=== PATIENT | female | born 1995 | race Caucasian/White ===

== ENCOUNTER 2022-11-10 20:34 | Emergency (ER) | payer MEDICAID, OTHER ==
[2022-11-10] MEDS ORDERED: SODIUM CHLORIDE 0.9% 1,000 ML IV STA (20:56)
[2022-11-10] MEDS ORDERED: ONDANSETRON 4 MG/2 ML VIAL IVP STA (20:56)
[2022-11-10 21:18] LABS: BASOPHILS # (AUTO) 0.1 10^3/uL (0.0-0.1); BASOPHILS % (AUTO) 0.3 %; HGB - HEMOGLOBIN 14.1 g/dL (12.0-16.0); LYMPHOCYTES # (AUTO) 0.8 10^3/uL (1.5-3.5); LYMPHOCYTES % (AUTO) 5.3 %; MEAN CORPUSCULAR HEMOGLOBIN 29.7 pg (27.0-31.0); MEAN CORPUSCULAR HGB CONC 33.6 g/dL (32.0-36.0); MEAN CORPUSCULAR VOLUME 88.6 fL (81.0-99.0); MEAN PLATELET VOLUME 10.3 fL (7.9-10.8); MONOCYTES # (AUTO) 0.5 10^3/uL (0.0-1.0); MONOCYTES % (AUTO) 3.5 %; NEUTROPHILS # (AUTO) 13.2 10^3/uL (1.5-6.6); NEUTROPHILS % (AUTO) 90.6 %; PLT - PLATELET COUNT 286 10^3/uL (130-450); RED BLOOD COUNT 4.74 10^6/uL (4.20-5.40); RED CELL DISTRIBUTION WIDTH 12.8 % (12.0-15.0); WHITE BLOOD COUNT 14.6 x10^3/uL (4.8-10.8)
[2022-11-10 21:29] LABS: ALBUMIN 4.8 g/dL (3.2-5.5); ALBUMIN/GLOBULIN RATIO 1.4 (1.0-2.2); BILIRUBIN,TOTAL 1.2 mg/dL (0.2-1.0); CALCIUM 9.8 mg/dL (8.5-10.3); TOTAL PROTEIN 8.3 g/dL (6.7-8.2)
[2022-11-10 22:13] LABS: BILIRUBIN,URINE NEGATIVE (NEGATIVE); GLUCOSE, URINE (UA) NEGATIVE (NEGATIVE); KETONES,URINE (UA) 40 mg/dL (NEGATIVE); LEUKOCYTE ESTERASE, URINE NEGATIVE (NEGATIVE); NITRITE,URINE NEGATIVE (NEGATIVE); OCCULT BLOOD,URINE TRACE-INTA (NEGATIVE); PH,URINE 5.5 PH (5.0-7.5); PROTEIN,URINE 30 mg/dL (NEGATIVE); UROBILINOGEN,URINE 0.2 (NORMAL) E.U./dL (NORMAL)
[2022-11-10 22:16] LABS: CLARITY,URINE HAZY (CLEAR); HCG UR QUAL NEGATIVE
[2022-11-10 22:28] LABS: RBC,URINE 0-5 /HPF (0-5)
[2022-11-10 22:29] LABS: AMORPHOUS SEDIMENT,UR Rare /LPF; BACTERIA,URINE Few /HPF (None Seen); SQUAMOUS EPITHELIAL CELL,UR MOD Squamous (<= Few)
[2022-11-10] MEDS ORDERED: ONDANSETRON ODT 4 MG Prepack 2 TL PRN (22:43)
--- NOTE | 2022-11-10 22:43 | ED Physician Documentation ---
History of Present Illness - Stated complaint Stated Complaint: VOMITING - Chief complaint Chief Complaint: General - History obtained from History obtained from: Patient - Additonal information Additional information: Patient is a 27-year-old female presenting for evaluation of feeling weak along with nausea and vomiting today. Patient reports drinking an excessive amount of alcohol last night. She states that this is not usual for her. She is unable to quantify how much alcohol she has had. She states that this afternoon she has not been able to keep any liquids or food down. She denies blood in emesis. Denies abdominal pain. No fever, chest pain, difficulty breathing or concerns for . Review of Systems Constitutional: denies: Fever Cardiac: denies: Chest pain / pressure Respiratory: denies: Dyspnea GI: reports: Nausea, Vomiting. denies: Abdominal Pain : denies: Dysuria Neurologic: denies: Head injury PD PAST MEDICAL HISTORY - Past Medical History Past Medical History: Yes Other Past Medical History: Hs of clot in brain. - Past Surgical History Past Surgical History: Yes - Present Medications Home Medications: Ambulatory Orders Medication Instructions Recorded Confirmed No Known Home Medications 11/10/22 11/10/22 - Allergies Allergies/Adverse Reactions: Allergies Allergy/AdvReac Type Severity Reaction Status Date / Time No Known Drug Allergies Allergy Verified 11/10/22 20:44 - Social History Does the pt smoke?: No Smoking Status: Never smoker Does the pt drink ETOH?: Yes Does the pt have substance abuse?: Yes Substance Use and Type: Marijuana - Immunizations Immunizations are current?: Yes - POLST Patient has POLST: No PD ED PE NORMAL - General General: Alert and oriented X 3, No acute distress, Well developed/nourished - HEENT HEENT: Atraumatic - Neck Neck: Supple, no meningeal sign - Cardiac Cardiac: RRR, No murmur - Respiratory Respiratory: No respiratory distress, Clear bilaterally - Abdomen Abdomen: Soft, Non tender, Non distended - Derm Derm: Warm and dry - Neuro Neuro: Alert and oriented X 3, No motor deficit, Normal speech Results - Vitals Vitals: Vital Signs - 24 hr 11/10/22 11/10/22 20:40 23:00 Temperature 36.4 C L Heart Rate 59 L 86 Respiratory 18 15 Rate Blood Pressure 131/80 H 112/62 O2 Saturation 100 100 Oxygen O2 Source Room air - Labs Labs: Laboratory Tests 11/10/22 11/10/22 11/10/22 21:12 21:12 22:04 WBC 14.6 H RBC 4.74 Hgb 14.1 Hct 42.0 MCV 88.6 MCH 29.7 MCHC 33.6 RDW 12.8 Plt Count 286 MPV 10.3 Neut # (Auto) 13.2 H Lymph # (Auto) 0.8 L [place] # (Auto) 0.5 Eos # (Auto) 0.0 Baso # (Auto) 0.1 Absolute Nucleated RBC 0.00 Nucleated RBC % 0.0 Sodium 143 Potassium 4.0 Chloride 104 Carbon Dioxide 24 Anion Gap 15.0 H BUN 21 H Creatinine 1.0 Estimated GFR (MDRD) 68 L Glucose 87 Calcium 9.8 Total Bilirubin 1.2 H AST 48 H ALT 35 Alkaline Phosphatase 61 Total Protein 8.3 H Albumin 4.8 Globulin 3.5 Albumin/Globulin Ratio 1.4 Lipase 25 Urine Color YELLOW Urine Clarity HAZY Urine pH 5.5 Ur Specific [place] >=1.030 H Urine Protein 30 H Urine Glucose (UA) NEGATIVE Urine Ketones 40 H Urine Occult Blood TRACE-INTA Urine Nitrite NEGATIVE Urine Bilirubin NEGATIVE Urine Urobilinogen 0.2 (NORMAL) Ur Leukocyte Esterase NEGATIVE Urine RBC 0-5 Urine WBC 6-10 H Ur Squamous Epith Cells MOD Squamous H Amorphous Sediment Rare Urine Bacteria Few Ur Microscopic Review INDICATED Urine Culture Comments NOT INDICATED Urine HCG, Qual NEGATIVE PD Medical Decision Making - ED course Complexity details: reviewed results, re-evaluated patient, d/w patient ED course: Patient presenting for evaluation of nausea and vomiting in the setting of heavy alcohol use. Her vital signs appear stable. Her abdominal exam is benign. She is ambulatory with clear speech and does not clinically appear intoxicated. CBC, chemistries reviewed. Mild elevation in bili and AST. WBC 14. Patient is feeling significantly better after IV fluids and Zofran. She is tolerating p.o. Patient counseled on continued supportive care. She states that she has Zofran at her own home but is currently out here visiting someone so does not Want a Zofran prescription. She was given a prepack to take home with her tonight.Patient is counseled on concerning symptoms to return for. Departure - Departure Disposition: 01 Home, Self Care Clinical Impression: Nausea & vomiting Condition: Stable Instructions: ED Nausea Vomiting Comments: I am sending you home with some antinausea medication. Please start with a bland diet and advance as tolerated. Please be cautious with your alcohol use. Your bilirubin and AST which are both liver markers were both minimally elevated which is likely related to your alcohol consumption yesterday. I would recommend follow-up with your primary care provider For recheck. Return to the emergency department for any concerning or worsening symptoms. Discharge Date/Time: 11/10/22 23:01
[2022-11-10 23:03] VITALS: BP 112/62
== END 2022-11-10 23:01 | disposition home or self-care (01) ==
LOC: ED 20:34
DX: R11.2 Nausea with vomiting, unspecified (principal)
CPT/HCPCS: 36415; 80053; 81001; 81003; 81025; 83690; 85025; 87086; 96374; 99284

== ENCOUNTER 2022-12-11 08:00 | Outpatient (CLI) | payer MEDICAID ==
[2022-12-11 16:38] LABS: BILIRUBIN,URINE NEGATIVE (NEGATIVE); GLUCOSE, URINE (UA) NEGATIVE (NEGATIVE); KETONES,URINE (UA) NEGATIVE (NEGATIVE); LEUKOCYTE ESTERASE, URINE NEGATIVE (NEGATIVE); NITRITE,URINE NEGATIVE (NEGATIVE); OCCULT BLOOD,URINE NEGATIVE (NEGATIVE); PROTEIN,URINE NEGATIVE (NEGATIVE); UROBILINOGEN,URINE 0.2 (NORMAL) E.U./dL (NORMAL)
[2022-12-11 16:47] LABS: CLARITY,URINE CLEAR (CLEAR)
[2022-12-11 17:07] LABS: BACTERIA,URINE Rare /HPF (None Seen); RBC,URINE 0-5 /HPF (0-5); SQUAMOUS EPITHELIAL CELL,UR FEW Squamous (<= Few); WBC,URINE 0-3 /HPF (0-5)
== END 2022-12-11 23:59 | disposition home or self-care (01) ==
LOC: LAB.WC 08:00
PROVIDERS: ATTEND Obstetrics & Gynecology
DX: Z34.90 Encounter for supervision of normal pregnancy, unspecified, unspecified trimester (principal)
CPT/HCPCS: 81001; 87086

== ENCOUNTER 2022-12-12 10:44 | Outpatient (CLI) | payer MEDICAID ==
[2022-12-12 18:03] LABS: BASOPHILS % (AUTO) 0.5 %; EOSINOPHILS % (AUTO) 0.7 %; HCT - HEMATOCRIT 41.5 % (37.0-47.0); HGB - HEMOGLOBIN 13.5 g/dL (12.0-16.0); LYMPHOCYTES % (AUTO) 33.3 %; MEAN CORPUSCULAR HEMOGLOBIN 30.1 pg (27.0-31.0); MEAN CORPUSCULAR HGB CONC 32.5 g/dL (32.0-36.0); MEAN CORPUSCULAR VOLUME 92.6 fL (81.0-99.0); MEAN PLATELET VOLUME 11.3 fL (7.9-10.8); MONOCYTES # (AUTO) 0.5 10^3/uL (0.0-1.0); MONOCYTES % (AUTO) 7.5 %; NEUTROPHILS # (AUTO) 3.5 10^3/uL (1.5-6.6); NEUTROPHILS % (AUTO) 57.7 %; PLT - PLATELET COUNT 272 10^3/uL (130-450); RED BLOOD COUNT 4.48 10^6/uL (4.20-5.40); RED CELL DISTRIBUTION WIDTH 12.6 % (12.0-15.0)
[2022-12-13 04:09] LABS: HBsAG SCREEN Negative (Negative); HCV AB Non Reactive (Non Reactive); HIV SCREEN 4TH GENERATION Non Reactive (Non Reactive)
[2022-12-13 08:10] LABS: RPR Non Reactive (Non Reactive); VARICELLA-ZOSTER AB IGG 523 index (Immune >165)
== END 2022-12-12 10:45 | disposition home or self-care (01) ==
LOC: LAB.N 10:44
PROVIDERS: ATTEND Obstetrics & Gynecology
DX: Z34.90 Encounter for supervision of normal pregnancy, unspecified, unspecified trimester (principal)
CPT/HCPCS: 36415; 85025; 86592; 86762; 86787; 86803; 86850; 86900; 86901; 87340; 87389

== ENCOUNTER 2022-12-18 12:13 | Outpatient (CLI) | payer MEDICAID ==
--- NOTE | 2022-12-19 13:31 | Ultrasound Report ---
PROCEDURE: OB First Trimester w/TV INDICATIONS: POSITIVE TEST OUTSIDE/PRIOR DATING DATA: Last menstrual period (LMP): 10/26/2022. LMP-based estimated date of delivery (TYESHA): 08/02/2023. First dating scan (date and location): 12/18/2022. Estimated date of delivery (TYESHA) from first dating scan: 08/11/2023. TECHNIQUE: Real-time scanning was performed of the fetus and maternal pelvic organs, with image documentation. Endovaginal scanning was also performed to better visualize the fetus and maternal ovaries. COMPARISON: None. FINDINGS: Intrauterine gestational sac present. Embryo: [place]-rump length of 0.5 cm, corresponding to a gestational age of 6 weeks 2 days. Heart rate: 118 bpm. Other: No perigestational fluid collection. Measurement variability in dating: +/- 4 weeks by LMP, +/- 7 days by mean sac diameter (use before 6 weeks gestation if crown-rump length not able to be measured), +/- 5 days by crown-rump length (6-12 weeks gestation). Maternal organs: Ovaries appear within normal limits. IMPRESSION: Single living intrauterine with gestational age of 6 weeks 2 days by crown-rump length bria esponding to an ultrasound TYESHA of 08/11/2023, discordant with clinical dates. Reviewed by: Too Easley MD on 12/19/2022 1:29 PM PDT Approved by: Too Easley MD on 12/19/2022 1:29 PM PDT Station ID: [id number]
== END 2022-12-18 12:14 | disposition home or self-care (01) ==
LOC: DI 12:13
PROVIDERS: ATTEND Obstetrics & Gynecology
DX: Z34.91 Encounter for supervision of normal pregnancy, unspecified, first trimester (principal)

== ENCOUNTER 2022-12-23 13:41 | Outpatient (CLI) | payer MEDICAID | END 2022-12-23 13:42 | disposition home or self-care (01) | LOC: LAB 13:41 | PROVIDERS: ATTEND Obstetrics & Gynecology | DX: O20.0 Threatened abortion (principal) | CPT/HCPCS: 36415; 84702 ==

== ENCOUNTER 2023-01-08 08:00 | Outpatient (CLI) | payer MEDICAID ==
[2023-01-08 21:16] LABS: CHLAMYDIA TRACHOMATIS DNA NEGATIVE (NEGATIVE); NEISSERIA GONORRHOEAE DNA NEGATIVE (NEGATIVE); TRICHOMONAS VAGINALIS DNA NEGATIVE (NEGATIVE)
== END 2023-01-08 23:59 | disposition home or self-care (01) ==
LOC: LAB.WC 08:00
PROVIDERS: ATTEND Obstetrics & Gynecology
DX: Z11.3 Encounter for screening for infections with a predominantly sexual mode of transmission (principal)
CPT/HCPCS: 87491; 87591; 87661

== ENCOUNTER 2023-01-25 08:26 | Outpatient (CLI) | payer MEDICAID | END 2023-01-25 08:27 | disposition home or self-care (01) | LOC: LAB 08:26 | DX: O26.21 Pregnancy care for patient with recurrent pregnancy loss, first trimester (principal); Z3A.11 11 weeks gestation of pregnancy | CPT/HCPCS: 36415 ==

== ENCOUNTER 2023-03-20 15:00 | Outpatient (CLI) | payer MEDICAID ==
--- NOTE | 2023-03-20 17:15 | Ultrasound Report ---
PROCEDURE: OB Detailed Eval INDICATIONS: SUPERVISION OF HIGH RISK OUTSIDE/PRIOR DATING DATA: Last menstrual period (LMP): 10/26/2022. LMP-based estimated date of delivery (TYESHA): 08/02/2023. First dating scan (date and location): 12/18/2022. Estimated date of delivery (TYESHA) from first dating scan: 08/11/2023. The below data below was generated using the ultrasound TYESHA of 08/11/2023 TECHNIQUE: Real-time scanning was performed of the fetus, with image documentation and biometric measurements. COMPARISON: 12/18/2022 FINDINGS: General: A single live intrauterine gestation is present. Presentation: Cephalic Placenta: Placental position is anterior/left, without previa. Amniotic fluid index: 13.1 cm, within normal limits for gestational age. Largest pocket of amniotic fluid: 4.3 cm heart rate: 140 beats per minute. Maternal cervical canal: 4.1 cm long; normal length is 2.5 cm or more. biometrics: Biparietal diameter: 4.6 cm, 20 weeks 0 days, 75th percentile Head circumference: 17.1 cm, 19 weeks 5 days, 56 percentile Abdominal circumference: 13.9 cm, 19 weeks 2 days, 39th percentile Femur length: 3.6 cm, 19 weeks 2 days, 35th percentile Estimated gestational age from initial scan: 19 weeks 3 days Composite gestational age from present scan: 19 weeks 4 days Estimated weight and percentile: 286 g, 39th percentile Measurement variability in biometric dating: +/- 10 days from 12-20 weeks gestation, +/- 2 weeks from 20-30 weeks gestation, +/- 3 weeks at 30 weeks gestation or later. Anatomic survey: Neuro: Ventricles are normal at less than 10 mm. Cisterna magna is normal at 3-11 mm. Cerebellum i s normal in size and morphology. Face: Nose and lips, facial profile are normal. Spine: No evidence for spina bifida. Heart: 4-chambered heart is present, with normal ventricular outflow tracts. Diaphragm: Diaphragm is intact. Stomach: Left-sided stomach is present. Kidneys: No hydronephrosis. Normal is less than 5 mm in 2nd trimester, less than 7 mm in 3rd trimester. Cord: 3 vessel cord has marginal insertion. A nuchal CORD can be seen. Bladder: Normal in size. Extremities: All 4 extremities are visualized. IMPRESSION: Marginal cord insertion. Nuchal cord. No anatomic abnormalities are identified. Normal interval growth compared to the prior ultrasound examination. Reviewed by: Travis Ramos MD on 03/20/2023 4:13 PM AKDT Approved by: Travis Ramos MD on 03/20/2023 4:13 PM AKDT Station ID: [id number]
== END 2023-03-20 15:01 | disposition home or self-care (01) ==
LOC: DI 15:00
PROVIDERS: ATTEND Obstetrics & Gynecology
DX: O09.892 Supervision of other high risk pregnancies, second trimester (principal); Z36.89 Encounter for other specified antenatal screening; Z3A.19 19 weeks gestation of pregnancy

== ENCOUNTER 2023-04-22 10:10 | Outpatient (CLI) | payer MEDICAID ==
[2023-04-22 10:36] LABS: BASOPHILS % (AUTO) 0.3 %; EOSINOPHILS % (AUTO) 0.2 %; HCT - HEMATOCRIT 35.4 % (37.0-47.0); HGB - HEMOGLOBIN 11.5 g/dL (12.0-16.0); LYMPHOCYTES # (AUTO) 1.7 10^3/uL (1.5-3.5); MEAN CORPUSCULAR HEMOGLOBIN 30.5 pg (27.0-31.0); MEAN CORPUSCULAR HGB CONC 32.5 g/dL (32.0-36.0); MEAN CORPUSCULAR VOLUME 93.9 fL (81.0-99.0); MEAN PLATELET VOLUME 10.4 fL (7.9-10.8); MONOCYTES # (AUTO) 0.6 10^3/uL (0.0-1.0); MONOCYTES % (AUTO) 6.3 %; NEUTROPHILS # (AUTO) 7.4 10^3/uL (1.5-6.6); NEUTROPHILS % (AUTO) 75.3 %; PLT - PLATELET COUNT 239 10^3/uL (130-450); RED BLOOD COUNT 3.77 10^6/uL (4.20-5.40); RED CELL DISTRIBUTION WIDTH 12.9 % (12.0-15.0); WHITE BLOOD COUNT 9.8 x10^3/uL (4.8-10.8)
[2023-04-22 10:40] LABS: BILIRUBIN,URINE NEGATIVE (NEGATIVE); GLUCOSE, URINE (UA) NEGATIVE (NEGATIVE); KETONES,URINE (UA) NEGATIVE (NEGATIVE); LEUKOCYTE ESTERASE, URINE MODERATE (NEGATIVE); NITRITE,URINE NEGATIVE (NEGATIVE); OCCULT BLOOD,URINE NEGATIVE (NEGATIVE); PH,URINE 6.5 PH (5.0-7.5); PROTEIN,URINE NEGATIVE (NEGATIVE); UROBILINOGEN,URINE 0.2 (NORMAL) E.U./dL (NORMAL)
[2023-04-22 10:43] VITALS: BP 124/72
[2023-04-22 10:49] LABS: CLARITY,URINE CLEAR (CLEAR); RBC,URINE 0-5 /HPF (0-5)
[2023-04-22 10:50] LABS: BACTERIA,URINE Rare /HPF (None Seen); SQUAMOUS EPITHELIAL CELL,UR FEW Squamous (<= Few)
[2023-04-22 10:55] LABS: ALBUMIN 3.8 g/dL (3.2-5.5); ALBUMIN/GLOBULIN RATIO 1.5 (1.0-2.2); BILIRUBIN,TOTAL 0.3 mg/dL (0.2-1.0); CREATININE 0.6 mg/dL (0.6-1.3); POTASSIUM 3.5 mmol/L (3.5-4.5); TOTAL PROTEIN 6.3 g/dL (6.4-8.9)
--- NOTE | 2023-04-22 19:20 | PROVIDER PROGRESS NOTE ---
- HPI Chief Complaint: Other (abdominal and right flank pain at 24 weeks. G1. sex about 28 hours ago. did not start until this am. pressure, discomfort. + movement. no dysuria, hematuria, vag discharge or bleeding.) Current : Vital Signs Temperature 98.2 F 04/22/23 10:18 Heart Rate 62 04/22/23 10:18 Respiratory Rate 16 04/22/23 10:18 Blood Pressure 124/72 04/22/23 10:18 Temperature 98.2 F 04/22/23 13:00 Heart Rate 62 04/22/23 13:00 Respiratory Rate 16 04/22/23 13:00 Blood Pressure 124/72 04/22/23 13:00 O2 Saturation If not protocol: Oxygen Flow, liters/minute - Exam abdomen soft, mildly tender over fundus. no rebound or guarding. no mass. fundus did not feel firm. contraction monitoring and no contractions visible on monitor. FHT normal for gestational age. right flank wiht some discomfort. vulva appears normal. speculum exam (her first ever) with normal appearing discharge. cervix a bit tender. swabs collected. cervix closed and feels very unlabored. extremities normal. - Plan Plan: discharge home. does not appear to be in labor. most likely round ligament pain. not dehydrated. no blood in urine to suggest kidney stone. some WBC in urine so mabye UIT but no other sx. will wait for cultures to treat. will call with fibronectin results later. did have sex about 28 hrs prior.
[2023-04-22 20:05] LABS: CHLAMYDIA TRACHOMATIS DNA NEGATIVE (NEGATIVE); NEISSERIA GONORRHOEAE DNA NEGATIVE (NEGATIVE)
[2023-04-22 20:45] LABS: BACTERIAL VAGINOSIS DNA NEGATIVE (NEGATIVE); CANDIDA GLABRATA DNA NEGATIVE (NEGATIVE); CANDIDA GROUP DNA POSITIVE (NEGATIVE); CANDIDA KRUSEI DNA NEGATIVE (NEGATIVE); TRICHOMONAS VAGINALIS DNA NEGATIVE (NEGATIVE)
== END 2023-04-22 13:05 | disposition home or self-care (01) ==
LOC: WFO 10:10 → FBP 10:11 → WFO 13:05
PROVIDERS: ATTEND Obstetrics & Gynecology
DX: O99.891 Other specified diseases and conditions complicating pregnancy (principal); R10.9 Unspecified abdominal pain; Z3A.24 24 weeks gestation of pregnancy
CPT/HCPCS: 36415; 80053; 81001; 81003; 81514; 82731; 85025; 87086; 87491; 87591; 87661; 99214; 99215

== ENCOUNTER 2023-05-01 11:25 | Outpatient (CLI) | payer MEDICAID ==
[2023-05-01 12:38] LABS: HCT - HEMATOCRIT 33.6 % (37.0-47.0); HGB - HEMOGLOBIN 10.9 g/dL (12.0-16.0); MEAN CORPUSCULAR HEMOGLOBIN 30.2 pg (27.0-31.0); MEAN CORPUSCULAR HGB CONC 32.4 g/dL (32.0-36.0); MEAN CORPUSCULAR VOLUME 93.1 fL (81.0-99.0); MEAN PLATELET VOLUME 10.5 fL (7.9-10.8); RED BLOOD COUNT 3.61 10^6/uL (4.20-5.40); RED CELL DISTRIBUTION WIDTH 12.9 % (12.0-15.0); WHITE BLOOD COUNT 8.8 x10^3/uL (4.8-10.8)
== END 2023-05-01 11:26 | disposition home or self-care (01) ==
LOC: LAB 11:25
PROVIDERS: ATTEND Obstetrics & Gynecology
DX: O09.891 Supervision of other high risk pregnancies, first trimester (principal)
CPT/HCPCS: 36415; 82950; 85027; 86850

== ENCOUNTER 2023-06-02 08:31 | Outpatient (CLI) | payer MEDICAID ==
--- NOTE | 2023-06-02 12:21 | Ultrasound Report ---
PROCEDURE: OB Follow up INDICATIONS: VELAMENTOUS INSERTION OF UMBILICAL CORD OUTSIDE/PRIOR DATING DATA: Last menstrual period (LMP): 10/26/2022. LMP-based estimated date of delivery (TYESHA): 08/02/2023. First dating scan (date and location): 12/18/2022. Estimated date of delivery (TYESHA) from first dating scan: 08/11/2023. The below data below was generated using the ultrasound TYESHA of 08/11/2023 TECHNIQUE: Real-time scanning was performed of the fetus, with image documentation and biometric measurements. Endovaginal scanning: Not performed. COMPARISON: Ultrasound 03/20/2023 FINDINGS: General: A single living intrauterine gestation is present. Presentation: Cephalic Placenta: Placental position is anterior. Amniotic fluid index: 11.0 cm, within normal limits for gestational age. heart rate: 126 beats per minute. Maternal cervical canal: 3.0 cm long; normal length is 2.5 cm or more. biometrics: Biparietal diameter: 7.15 cm, 28 weeks 5 days, 7.8% Head circumference: 27.2 cm, 29 weeks 5 days, 10.7% Abdominal circumference: 24.9 cm, 29 weeks 1 day, 22% Femur length: 5.6 cm, 29 weeks 5 days, 26% Estimated gestational age from initial scan: 30 weeks 0 days Composite gestational age from present scan: 29 weeks 2 days Estimated weight and percentile: 1379 g, 18% Measurement variability in biometric dating: +/- 10 days from 12-20 weeks gestation, +/- 2 weeks from 20-30 weeks gestation, +/- 3 weeks at 30 weeks gestation or more. Other: Not applicable. IMPRESSION: 1.Single live intrauterine consistent with 29 weeks and 2 days. 2.The placenta cord insertion appears within normal limits. Reviewed by: Ton Rodas MD on 06/02/2023 12:19 PM PST Approved by: Ton Rodas MD on 06/02/2023 12:19 PM PST Station ID: [id number]
== END 2023-06-02 08:32 | disposition home or self-care (01) ==
LOC: DI 08:31
PROVIDERS: ATTEND Obstetrics & Gynecology
DX: O43.123 Velamentous insertion of umbilical cord, third trimester (principal); Z3A.29 29 weeks gestation of pregnancy

== ENCOUNTER 2023-06-12 14:19 | Outpatient (CLI) | payer MEDICAID ==
[2023-06-12 14:34] VITALS: O2SAT 98
[2023-06-12] MEDS ORDERED: ACETAMINOPHEN 500 MG TABLET PO ONE (15:27)
[2023-06-12 15:40] VITALS: BP 130/69
--- NOTE | 2023-06-12 18:52 | PROVIDER PROGRESS NOTE ---
- HPI Chief Complaint: Other (28yo presented today with DREW, stars in her eyes, and worrying that her BP was high.) Current : Current EDU 08/11/23 Gestation 31 Weeks and 3 Days 4 Para 0 Vital Signs Temperature 98.2 F 06/12/23 14:31 Heart Rate 71 06/12/23 14:31 Respiratory Rate 16 06/12/23 14:31 Blood Pressure 131/81 H 06/12/23 14:31 O2 Saturation 98 06/12/23 14:31 Temperature 98.2 F 06/12/23 14:32 Heart Rate 69 06/12/23 15:12 Respiratory Rate 16 06/12/23 14:31 Blood Pressure 130/69 06/12/23 15:39 O2 Saturation 98 06/12/23 14:31 If not protocol: Oxygen Flow, liters/minute - Exam VSS - no elevated BP NAD no increased respiratory effort - Procedures OB Procedure Performed: NST Diagnosis/Indication for NST: Other NST Procedure: NST Procedure Start Date 06/12/23 Start Time 14:28 Stop Time 15:10 Vibroacoustic Stimulation Used No Patient States Movement Yes Service Date of procedure: 06/12/23 - Plan Plan: NST: 135 mod denise + A cells no D cells reactive 28yo @ 31 weeks presented with DREW and for r/o PIH BP wnl DREW + neurological symptoms - unilateral pain and numbness has a h/o complex migraines at 17yo that required in-hospital admission at [facility] so we have ruled out obstetric causes of her DREW and recommend ER eval for acute onset neurological symptoms. Discussed with ER team and pt, she will head there
== END 2023-06-12 17:15 | disposition home or self-care (01) ==
LOC: WFO 14:19 → FBP 14:22 → WFO 17:15
PROVIDERS: ATTEND Obstetrics & Gynecology
DX: R51.9 Headache, unspecified (principal); Z33.1 Pregnant state, incidental; Z86.69 Personal history of other diseases of the nervous system and sense organs
CPT/HCPCS: 59025; A9270; 99215

== ENCOUNTER 2023-06-12 17:09 | Emergency (ER) | payer MEDICAID ==
[2023-06-12] MEDS ORDERED: SODIUM CHLORIDE 0.9% 1,000 ML IV STA (17:26)
[2023-06-12] MEDS ORDERED: diphenhydrAMINE INJ 50 MG/ML VIAL IVP STA (17:29)
[2023-06-12] MEDS ORDERED: PROCHLORPERAZINE 10 MG/2 ML VIAL IVP STA (17:29)
--- NOTE | 2023-06-12 17:32 | ED Physician Documentation ---
History of Present Illness - Stated complaint Stated Complaint: LIGHTHEADED - Chief complaint Chief Complaint: General - History obtained from History obtained from: Patient - History of Present Illness Timing: Today Pain level max: 5 Pain level now: 5 - Additonal information Additional information: Patient is a 28-year-old female, approximately 31 weeks . She has a history of Antithrombin III deficiency. She is on Lovenox. She states that she noticed her right leg more swollen than usual today, went into OB for this. She states that while there she did develop a headache. She states that they ruled her out for preeclampsia and sent her here for evaluation. No focal weakness, numbness, tingling. No loss of bowel or bladder control. No trauma. Received Tylenol for her headache. Review of Systems Constitutional: denies: Fever, Chills Nose: denies: Rhinorrhea / runny nose, Congestion GI: denies: Nausea, Vomiting Skin: denies: Rash PD PAST MEDICAL HISTORY - Past Medical History Neuro: Migraines Other Past Medical History: antithrombin three deficiency - Past Surgical History Past Surgical History: Yes - Present Medications Home Medications: Ambulatory Orders Medication Instructions Recorded Confirmed Enoxaparin [Lovenox] 1 applic SUBQ DAILY 06/12/23 06/12/23 Iron Fum,Ps/Folic/Bcomp,C No.9 1 cap PO DAILY 06/12/23 06/12/23 [Iron Folate Plus Capsule] Sertraline [Zoloft] 1 tab PO DAILY 06/12/23 06/12/23 - Allergies Allergies/Adverse Reactions: Allergies Allergy/AdvReac Type Severity Reaction Status Date / Time Pork/Porcine Containing Allergy Headache Verified 06/12/23 17:47 Products heparin AdvReac Nausea Verified 06/12/23 17:47 - Social History Does the pt smoke?: No Smoking Status: Never smoker Does the pt drink ETOH?: Yes Does the pt have substance abuse?: Yes - Immunizations Immunizations are current?: Yes - POLST Patient has POLST: No PD ED PE NORMAL - Vitals Vital signs reviewed: Yes - General General: Alert and oriented X 3, No acute distress - HEENT HEENT: Atraumatic, PERRL, EOMI, Moist mucous membranes - Neck Neck: Supple, no meningeal sign, No bony TTP - Cardiac Cardiac: RRR, Strong equal pulses - Respiratory Respiratory: No respiratory distress, Clear bilaterally - Abdomen Abdomen: Soft, Non tender, Non distended - Derm Derm: Warm and dry, No rash - Extremities Extremities: Other (Mild right lower extremity swelling compared to the left. Neurovascular intact. Brisk cap refill) - Neuro Neuro: Alert and oriented X 3, leadership development instructor 2-12 intact, No motor deficit, No sensory deficit, Normal speech - Psych Psych: Normal mood, Normal affect Results - Vitals Vitals: Vital Signs - 24 hr 06/12/23 06/12/23 17:22 18:25 Temperature 36.1 C L Heart Rate 65 62 Respiratory 18 18 Rate Blood Pressure 148/90 H 127/77 O2 Saturation 100 99 Oxygen O2 Source Room air - Labs Labs: Laboratory Tests 06/12/23 06/12/23 06/12/23 17:37 17:37 18:00 WBC 9.4 RBC 3.92 L Hgb 11.7 L Hct 35.8 L MCV 91.3 MCH 29.8 MCHC 32.7 RDW 13.2 Plt Count 233 MPV 11.0 H Neut # (Auto) 6.4 Lymph # (Auto) 2.2 [place] # (Auto) 0.7 Eos # (Auto) 0.0 Baso # (Auto) 0.0 Absolute Nucleated RBC 0.00 Nucleated RBC % 0.0 Sodium 135 Potassium 4.0 Chloride 102 Carbon Dioxide 28 Anion Gap 5.0 L BUN 7 Creatinine 0.7 Estimated GFR (MDRD) 101 Glucose 84 Calcium 8.9 Total Bilirubin 0.4 AST 29 ALT 41 Alkaline Phosphatase 106 Total Protein 6.7 Albumin 3.6 Globulin 3.1 Albumin/Globulin Ratio 1.2 Urine Color YELLOW Urine Clarity CLEAR Urine pH 6.0 Ur Specific [place] <=1.005 Urine Protein NEGATIVE Urine Glucose (UA) NEGATIVE Urine Ketones NEGATIVE Urine Occult Blood NEGATIVE Urine Nitrite NEGATIVE Urine Bilirubin NEGATIVE Urine Urobilinogen 0.2 (NORMAL) Ur Leukocyte Esterase TRACE H Urine RBC None Seen Urine WBC 4-5 Ur Squamous Epith Cells FEW Squamous Urine Bacteria None Seen Ur Microscopic Review INDICATED Urine Culture Comments INDICATED Urine Creatinine Ur Total Protein Timed Protein/Creatinin Ratio 06/12/23 18:00 WBC RBC Hgb Hct MCV MCH MCHC RDW Plt Count MPV Neut # (Auto) Lymph # (Auto) [place] # (Auto) Eos # (Auto) Baso # (Auto) Absolute Nucleated RBC Nucleated RBC % Sodium Potassium Chloride Carbon Dioxide Anion Gap BUN Creatinine Estimated GFR (MDRD) Glucose Calcium Total Bilirubin AST ALT Alkaline Phosphatase Total Protein Albumin Globulin Albumin/Globulin Ratio Urine Color Urine Clarity Urine pH Ur Specific [place] Urine Protein Urine Glucose (UA) Urine Ketones Urine Occult Blood Urine Nitrite Urine Bilirubin Urine Urobilinogen Ur Leukocyte Esterase Urine RBC Urine WBC Ur Squamous Epith Cells Urine Bacteria Ur Microscopic Review Urine Culture Comments Urine Creatinine 39.8 Ur Total Protein Timed 4 Protein/Creatinin Ratio 0.1 - Rads (name of study) Duplex ultrasound right lower extremity Relevant Findings:: Final report received, See rad report PD Medical Decision Making - ED course Complexity details: reviewed results, re-evaluated patient, considered differential, d/w patient ED course: 28-year-old female presents to the emergency department with swelling in the right lower extremity, slightly greater than the left, she is 31 weeks . History of Antithrombin III deficiency and is on Lovenox. Has not missed any doses. Ultrasound does not show any evidence of DVT. She was given Compazine and Benadryl for her headache. Immediately after the ultrasound she stated she had a family emergency to the nurse and had to leave right away. Patient got up, allowed the nurse to remove the IV and then eloped from the emergency department. I was not notified of her departure until after she had left, therefore I did not get to speak with her. Her urinalysis does not show any proteinuria, urine MTP to creatinine ratio is 0.1. This document was made in part using voice recognition software. While efforts are made to proofread this document, sound alike and grammatical errors may occur. Departure - Departure Disposition: ED Elope Clinical Impression: Leg swelling in Qualifiers: Trimester: third trimester Qualified Code(s): O12.03 - Gestational edema, third trimester Headache Qualifiers: Headache type: unspecified Headache chronicity pattern: unspecified pattern Intractability: not intractable Qualified Code(s): R51.9 - Headache, unspecified Condition: Stable Forms: PCP List Discharge Date/Time: 06/12/23 18:25
[2023-06-12 17:44] LABS: BASOPHILS % (AUTO) 0.3 %; EOSINOPHILS % (AUTO) 0.4 %; HCT - HEMATOCRIT 35.8 % (37.0-47.0); HGB - HEMOGLOBIN 11.7 g/dL (12.0-16.0); LYMPHOCYTES # (AUTO) 2.2 10^3/uL (1.5-3.5); LYMPHOCYTES % (AUTO) 23.6 %; MEAN CORPUSCULAR HEMOGLOBIN 29.8 pg (27.0-31.0); MEAN CORPUSCULAR HGB CONC 32.7 g/dL (32.0-36.0); MEAN CORPUSCULAR VOLUME 91.3 fL (81.0-99.0); MONOCYTES # (AUTO) 0.7 10^3/uL (0.0-1.0); MONOCYTES % (AUTO) 7.2 %; NEUTROPHILS # (AUTO) 6.4 10^3/uL (1.5-6.6); PLT - PLATELET COUNT 233 10^3/uL (130-450); RED BLOOD COUNT 3.92 10^6/uL (4.20-5.40); RED CELL DISTRIBUTION WIDTH 13.2 % (12.0-15.0); WHITE BLOOD COUNT 9.4 x10^3/uL (4.8-10.8)
[2023-06-12 18:01] LABS: ALBUMIN 3.6 g/dL (3.2-5.5); ALBUMIN/GLOBULIN RATIO 1.2 (1.0-2.2); BILIRUBIN,TOTAL 0.4 mg/dL (0.2-1.0); CALCIUM 8.9 mg/dL (8.5-10.3); CREATININE 0.7 mg/dL (0.6-1.3); TOTAL PROTEIN 6.7 g/dL (6.4-8.9)
[2023-06-12 18:16] LABS: BILIRUBIN,URINE NEGATIVE (NEGATIVE); GLUCOSE, URINE (UA) NEGATIVE (NEGATIVE); KETONES,URINE (UA) NEGATIVE (NEGATIVE); LEUKOCYTE ESTERASE, URINE TRACE (NEGATIVE); NITRITE,URINE NEGATIVE (NEGATIVE); OCCULT BLOOD,URINE NEGATIVE (NEGATIVE); PROTEIN,URINE NEGATIVE (NEGATIVE); UROBILINOGEN,URINE 0.2 (NORMAL) E.U./dL (NORMAL)
[2023-06-12 18:26] VITALS: BP 127/77; O2SAT 99
[2023-06-12 18:28] LABS: CLARITY,URINE CLEAR (CLEAR); CREATININE,URINE 39.8 mg/dL; PROTEIN/CREATININE RATIO,URINE 0.1 (<=0.2)
[2023-06-12 18:30] LABS: BACTERIA,URINE None Seen /HPF (None Seen); RBC,URINE None Seen /HPF (0-5); SQUAMOUS EPITHELIAL CELL,UR FEW Squamous (<= Few)
--- NOTE | 2023-06-12 18:37 | Ultrasound Report ---
PROCEDURE: Duplex Ext Veins Right INDICATIONS: RLE swelling, antithrombin III def TECHNIQUE: Real-time imaging, as well as color and pulse Doppler interrogation, were performed of the lower extr emity deep veins from the inguinal ligament to the popliteal fossa. Attempted visualization of the ca lf veins was performed. COMPARISON: None. FINDINGS: The deep veins are normally compressible, and free of intraluminal thrombus. Color and pu lse Doppler demonstrate normal phasic intraluminal flow. There is normal augmentation response to di stal compression maneuver. IMPRESSION: No deep venous thrombosis of the visualized lower extremity. Reviewed by: Jf Louis MD on 06/12/2023 6:36 PM PST Approved by: Jf Louis MD on 06/12/2023 6:36 PM PST Station ID: [id number]
--- NOTE | 2023-06-13 07:34 | ED Physician Documentation ---
ED Addendum - Addendum Addendum: 06/13/23 07:34 Looks as though she should have been marked left w/o dispo, not elope.
== END 2023-06-12 18:25 | disposition home or self-care (01) ==
LOC: ED 17:09
DX: O26.893 Other specified pregnancy related conditions, third trimester (principal); R51.9 Headache, unspecified; O12.03 Gestational edema, third trimester; Z3A.31 31 weeks gestation of pregnancy; Z86.69 Personal history of other diseases of the nervous system and sense organs
CPT/HCPCS: 36415; 59025; 80053; 81001; 82570; 84156; 85025; 87086; 93971; 96374; 96375; 99283; 99284; A9270; J1200; 81003

== ENCOUNTER 2023-07-14 11:42 | Outpatient (CLI) | payer MEDICAID ==
--- NOTE | 2023-07-14 15:16 | Ultrasound Report ---
PROCEDURE: OB Follow up INDICATIONS: UTERINE SIZE-DATE DISCREPANCY OUTSIDE/PRIOR DATING DATA: Last menstrual period (LMP): 10/26/2022. LMP-based estimated date of delivery (TYESHA): 08/02/2023. First dating scan (date and location): 12/18/2022. Estimated date of delivery (TYESHA) from first dating scan: 08/11/2023. The below data below was generated using the ultrasound TYESHA of 08/11/2023 TECHNIQUE: Real-time scanning was performed of the fetus, with image documentation and biometric measurements. Spectral and Doppler evaluation of the umbilical artery was obtained. Endovaginal scanning: Not performed. COMPARISON: None. FINDINGS: General: A single living intrauterine gestation is present. Presentation: Vertex Placenta: Placental position is anterior left, without previa. Amniotic fluid index: 13.1 cm, within normal limits for gestational age. heart rate: 138 beats per minute. Maternal cervical canal: 3.5 cm long; normal length is 2.5 cm or more. biometrics: Biparietal diameter: 8.4 cm, 33 weeks 6 days, 7.8 percentile Head circumference: 31.7 cm, 35 weeks 5 days, 14.2 percentile Abdominal circumference: 29.29 cm, 33 weeks 2 days, 3.4 percentile Femur length: 6.54 cm, 33 weeks 5 days, 4.2 percentile Estimated gestational age from initial scan: 36 weeks 0 days Composite gestational age from present scan: 34 weeks 1 day Estimated weight and percentile: 2256 g, 6th percentile Measurement variability in biometric dating: +/- 10 days from 12-20 weeks gestation, +/- 2 weeks from 20-30 weeks gestation, +/- 3 weeks at 30 weeks gestation or more. Other: Normal umbilical artery waveform. SD ratio ranges 2.4 through 5.1. IMPRESSION: Single living intrauterine at 36 weeks 0 days, TYESHA of 08/11/2023. Estimated weight of 2256 g, 6th percentile. Normal umbilical artery waveform. SD ranges 2.5-5.1. Reviewed by: Jf Louis MD on 07/14/2023 3:15 PM PST Approved by: Jf Louis MD on 07/14/2023 3:15 PM PST Station ID: [id number]
== END 2023-07-14 11:43 | disposition home or self-care (01) ==
LOC: DI 11:42
PROVIDERS: ATTEND Obstetrics & Gynecology
DX: O26.843 Uterine size-date discrepancy, third trimester (principal); Z3A.36 36 weeks gestation of pregnancy

== ENCOUNTER 2023-07-14 13:31 | Outpatient (CLI) | payer MEDICAID ==
[2023-07-14 13:53] VITALS: BP 133/76
[2023-07-14 14:32] VITALS: O2SAT 99
--- NOTE | 2023-07-16 20:54 | PROCEDURE REPORT ---
- HPI Current EDU 08/11/23 Gestation 36 Weeks and 0 Days 4 Para 0 on lovenox. Antithrombin 3 deficiency. Vital Signs Temperature 98.6 F 07/14/23 13:44 Heart Rate 78 07/14/23 13:44 Respiratory Rate 16 07/14/23 13:44 Blood Pressure 133/76 H 07/14/23 13:44 O2 Saturation 99 07/14/23 13:44 Temperature 98.6 F 07/14/23 14:45 Heart Rate 89 07/14/23 14:45 Respiratory Rate 16 07/14/23 14:45 Blood Pressure 133/76 H 07/14/23 14:45 O2 Saturation 99 07/14/23 13:44 If not protocol: Oxygen Flow, liters/minute - NST Procedure NST Procedure Start Date 07/14/23 Start Time 13:41 Stop Time 14:43 Vibroacoustic Stimulation Used No Patient States Movement Yes NST reviewed. baseline 130. + acels, no decels. reactive NST care as scheduled.
== END 2023-07-14 15:00 | disposition home or self-care (01) ==
LOC: WFO 13:31 → FBP 13:34 → WFO 15:00
PROVIDERS: ATTEND Obstetrics & Gynecology
DX: O26.843 Uterine size-date discrepancy, third trimester (principal); Z3A.36 36 weeks gestation of pregnancy
CPT/HCPCS: 59025

== ENCOUNTER 2023-07-17 08:00 | Outpatient (CLI) | payer MEDICAID | END 2023-07-17 23:59 | disposition home or self-care (01) | LOC: LAB.WC 08:00 | PROVIDERS: ATTEND Obstetrics & Gynecology | DX: Z36.85 Encounter for antenatal screening for Streptococcus B (principal) | CPT/HCPCS: 87797 ==

== ENCOUNTER 2023-07-18 11:55 | Outpatient (CLI) | payer MEDICAID ==
[2023-07-18 12:18] VITALS: BP 130/84
[2023-07-18 13:17] LABS: BASOPHILS % (AUTO) 0.3 %; EOSINOPHILS % (AUTO) 0.3 %; HCT - HEMATOCRIT 35.9 % (37.0-47.0); HGB - HEMOGLOBIN 11.1 g/dL (12.0-16.0); LYMPHOCYTES # (AUTO) 1.7 10^3/uL (1.5-3.5); LYMPHOCYTES % (AUTO) 21.1 %; MEAN CORPUSCULAR HEMOGLOBIN 28.2 pg (27.0-31.0); MEAN CORPUSCULAR HGB CONC 30.9 g/dL (32.0-36.0); MEAN CORPUSCULAR VOLUME 91.3 fL (81.0-99.0); MEAN PLATELET VOLUME 11.9 fL (7.9-10.8); MONOCYTES # (AUTO) 0.6 10^3/uL (0.0-1.0); NEUTROPHILS # (AUTO) 5.6 10^3/uL (1.5-6.6); NEUTROPHILS % (AUTO) 70.8 %; PLT - PLATELET COUNT 179 10^3/uL (130-450); RED BLOOD COUNT 3.93 10^6/uL (4.20-5.40); RED CELL DISTRIBUTION WIDTH 14.3 % (12.0-15.0); WHITE BLOOD COUNT 7.9 x10^3/uL (4.8-10.8)
[2023-07-18 13:35] LABS: ALBUMIN 3.5 g/dL (3.2-5.5); ALBUMIN/GLOBULIN RATIO 1.2 (1.0-2.2); BILIRUBIN,TOTAL 0.2 mg/dL (0.2-1.0); CALCIUM 9.2 mg/dL (8.5-10.3); CREATININE 0.7 mg/dL (0.6-1.3); POTASSIUM 3.6 mmol/L (3.5-4.5); TOTAL PROTEIN 6.5 g/dL (6.4-8.9)
[2023-07-18 13:36] LABS: CREATININE,URINE 24.9 mg/dL; PROTEIN/CREATININE RATIO,URINE 0.2 (<=0.2)
--- NOTE | 2023-07-23 20:36 | PROCEDURE REPORT ---
- HPI Diagnosis/Indication for NST: Intrauterine growth restriction Current EDU 08/11/23 Gestation 36 Weeks and 4 Days 4 Para 0 Vital Signs Temperature 98.2 F 07/18/23 12:05 Heart Rate 80 07/18/23 12:05 Respiratory Rate 16 07/18/23 12:05 Blood Pressure 130/84 H 07/18/23 12:05 Temperature 98.2 F 07/18/23 12:05 Heart Rate 80 07/18/23 12:05 Respiratory Rate 16 07/18/23 12:05 Blood Pressure 130/84 H 07/18/23 12:05 O2 Saturation If not protocol: Oxygen Flow, liters/minute - NST Procedure NST Procedure Start Date 07/18/23 Start Time 12:10 Stop Time 12:50 Vibroacoustic Stimulation Used No Patient States Movement Yes - Results and Plan Findings/Impression: NST reviewed. NOrmal baseline, moderate variability. acels and no decels. reactive NST. care as scheduled.
== END 2023-07-18 13:15 | disposition home or self-care (01) ==
LOC: WFO 11:55 → FBP 11:58 → WFO 13:15
PROVIDERS: ATTEND Obstetrics & Gynecology
DX: O36.5930 Maternal care for other known or suspected poor fetal growth, third trimester, not applicable or unspecified (principal); Z3A.36 36 weeks gestation of pregnancy
CPT/HCPCS: 36415; 59025; 80053; 82570; 84156; 85025

== ENCOUNTER 2023-07-23 13:46 | Outpatient (CLI) | payer MEDICAID ==
[2023-07-23 14:11] VITALS: BP 129/79
--- NOTE | 2023-07-23 20:37 | PROCEDURE REPORT ---
- HPI Vital Signs Temperature 99.0 F 07/23/23 14:04 Heart Rate 102 H 07/23/23 14:04 Respiratory Rate 16 07/23/23 14:04 Blood Pressure 129/79 07/23/23 14:04 Temperature 99.0 F 07/23/23 14:04 Heart Rate 102 H 07/23/23 14:04 Respiratory Rate 16 07/23/23 14:04 Blood Pressure 129/79 07/23/23 14:04 O2 Saturation If not protocol: Oxygen Flow, liters/minute - NST Procedure NST Procedure Start Date 07/23/23 Start Time 13:57 Stop Time 15:27 Vibroacoustic Stimulation Used No Patient States Movement Yes - Results and Plan Findings/Impression: NST reviewed. NOrmal baseline, moderate variability. acels and no decels. reactive NST. care as scheduled.
== END 2023-07-23 15:37 | disposition home or self-care (01) ==
LOC: WFO 13:46 → FBP 13:48 → WFO 15:37
PROVIDERS: ATTEND Obstetrics & Gynecology
DX: O36.5930 Maternal care for other known or suspected poor fetal growth, third trimester, not applicable or unspecified (principal); Z3A.00 Weeks of gestation of pregnancy not specified
CPT/HCPCS: 59025

== ENCOUNTER 2023-07-24 08:38 | Outpatient (CLI) | payer MEDICAID ==
--- NOTE | 2023-07-24 11:18 | Ultrasound Report ---
PROCEDURE: OB Biophysical Profile INDICATIONS: GROWTH RESTRICTION OUTSIDE/PRIOR DATING DATA: Provided working TYESHA is 08/11/2023. TECHNIQUE: Real-time scanning was performed of the fetus, with image documentation and biometric omar surements. Biophysical profile was also obtained. COMPARISON: 07/14/2023 FINDINGS: General: A single living intrauterine gestation is present. Presentation: Vertex Placenta: Placental position is anterior, without previa. Amniotic fluid index: 16.1 cm, normal for gestational age. heart rate: 145 beats per minute. Maternal cervical canal: 4.2 cm long; normal length is 2.5 cm or more. estimated gestational age is 37 weeks and 3 days. Biophysical profile: Tone: 2 points. Movement: 2 points. Respiration: 2 points. Largest pocket of fluid: 2 points. Umbilical artery Doppler: SD ratios measure 3 or under. Left renal pelviectasis is 0.3 to 0.4 cm. This is prominent, but not pathologically enlarged for gest ational age. IMPRESSION: Living intrauterine gestation at 37 weeks and 3 days. BPP is 8 out of 8. Normal APRIL. SD ratios measur e 3 or under, within normal limits. Reviewed by: Freeman Decker MD on 07/24/2023 11:17 AM PST Approved by: Freeman Decker MD on 07/24/2023 11:17 AM PST Station ID: [id number]
== END 2023-07-24 08:39 | disposition home or self-care (01) ==
LOC: DI 08:38
PROVIDERS: ATTEND Obstetrics & Gynecology
DX: O36.5930 Maternal care for other known or suspected poor fetal growth, third trimester, not applicable or unspecified (principal); Z3A.37 37 weeks gestation of pregnancy
CPT/HCPCS: 93976

== ENCOUNTER 2023-07-25 10:20 | Outpatient (CLI) | payer MEDICAID ==
[2023-07-25 12:09] VITALS: BP 135/77
--- NOTE | 2023-07-25 12:22 | PROCEDURE REPORT ---
- HPI Current EDU 08/11/23 Gestation 37 Weeks and 4 Days 4 Para 0 Vital Signs Temperature 98.7 F 07/25/23 11:49 Heart Rate 57 L 07/25/23 11:49 Respiratory Rate 16 07/25/23 11:49 Blood Pressure 135/77 H 07/25/23 11:49 Temperature 98.7 F 07/25/23 11:49 Heart Rate 57 L 07/25/23 11:49 Respiratory Rate 16 07/25/23 11:49 Blood Pressure 135/77 H 07/25/23 11:49 O2 Saturation If not protocol: Oxygen Flow, liters/minute - NST Procedure NST Procedure Start Date 07/25/23 Start Time 10:30 Stop Time 11:30 Vibroacoustic Stimulation Used No Patient States Movement Yes - Results and Plan Plan: Patient is a 28-year-old -0-3-0 at 37 weeks 4 days gestation here for NST. NST Performed 07/25/2023 NST Read 07/25/2023 FHT: 125 bpm baseline, moderate variability, accelerations present, no decelerations. Reactive NST [place]: Quiescent Diagnosis 37 weeks gestation IUGR Continue with scheduled OB care
== END 2023-07-25 12:12 | disposition home or self-care (01) ==
LOC: WFO 10:20 → FBP 10:22 → WFO 12:12
PROVIDERS: ATTEND Obstetrics & Gynecology
DX: O36.5930 Maternal care for other known or suspected poor fetal growth, third trimester, not applicable or unspecified (principal); Z3A.37 37 weeks gestation of pregnancy
CPT/HCPCS: 59025

== ENCOUNTER 2023-07-28 11:15 | Inpatient (IN) | payer MEDICAID ==
[2023-07-28] MEDS ORDERED: hydrALAZINE INJ 20 MG/ML VIAL IVP PRN ×2 (12:24)
[2023-07-28] MEDS ORDERED: OXYTOCIN 10 UNIT/ML VIAL IM PRN (12:24)
[2023-07-28] MEDS ORDERED: NIFEdipine 10 MG CAPSULE PO PRN (12:24)
[2023-07-28] MEDS ORDERED: LABETALOL 20 MG/4 ML SYRINGE IVP PRN ×3 (12:24)
[2023-07-28] MEDS ORDERED: TRANEXAMIC ACID IN NACL 1,000 MG/100 ML BAG IV PRN (12:24)
[2023-07-28] MEDS ORDERED: lidocaine 1% 20 ML MDV ID PRN (12:24)
[2023-07-28] MEDS ORDERED: TERBUTALINE 1 MG/ML VIAL SUBQ PRN (12:24)
[2023-07-28] MEDS ORDERED: CARBOPROST TROMETHAMINE 250 MCG/ML VIAL IM PRN (12:24)
[2023-07-28] MEDS ORDERED: SODIUM CHLORIDE FLUSH 0.9% 10 ML SYRINGE IVP PRN (12:24)
[2023-07-28] MEDS ORDERED: miSOPROStoL 200 MCG TABLET PR PRN (12:24)
[2023-07-28] MEDS ORDERED: OXYTOCIN/SODIUM CHLORIDE 500 ML IV PRN (12:24)
[2023-07-28] MEDS ORDERED: METHYLERGONOVINE 0.2 MG/ML VIAL IM PRN (12:24)
[2023-07-28] MEDS ORDERED: miSOPROStoL 200 MCG TABLET BC PRN (12:24)
[2023-07-28] MEDS: miSOPROStoL 100 MCG TABLET VG SCH (12:58)
[2023-07-28 14:56] LABS: ALBUMIN 3.6 g/dL (3.2-5.5); ALBUMIN/GLOBULIN RATIO 1.2 (1.0-2.2); BILIRUBIN,TOTAL 0.3 mg/dL (0.2-1.0); CALCIUM 8.9 mg/dL (8.5-10.3); CREATININE 0.8 mg/dL (0.6-1.3); POTASSIUM 3.7 mmol/L (3.5-4.5); TOTAL PROTEIN 6.7 g/dL (6.4-8.9)
[2023-07-28 15:55] LABS: BASOPHILS % (AUTO) 0.2 %; EOSINOPHILS % (AUTO) 0.2 %; HCT - HEMATOCRIT 33.3 % (37.0-47.0); HGB - HEMOGLOBIN 10.9 g/dL (12.0-16.0); LYMPHOCYTES # (AUTO) 1.9 10^3/uL (1.5-3.5); LYMPHOCYTES % (AUTO) 23.2 %; MEAN CORPUSCULAR HEMOGLOBIN 29.4 pg (27.0-31.0); MEAN CORPUSCULAR HGB CONC 32.7 g/dL (32.0-36.0); MEAN CORPUSCULAR VOLUME 89.8 fL (81.0-99.0); MEAN PLATELET VOLUME 12.7 fL (7.9-10.8); MONOCYTES # (AUTO) 0.4 10^3/uL (0.0-1.0); MONOCYTES % (AUTO) 5.1 %; NEUTROPHILS # (AUTO) 5.7 10^3/uL (1.5-6.6); NEUTROPHILS % (AUTO) 70.8 %; PLT - PLATELET COUNT 170 10^3/uL (130-450); RED BLOOD COUNT 3.71 10^6/uL (4.20-5.40); RED CELL DISTRIBUTION WIDTH 15.1 % (12.0-15.0)
--- NOTE | 2023-07-28 21:51 | HISTORY & PHYSICAL EXAMINATION ---
Admit History - Visit Reason Visit Reason: Other (admitted for labor induction due to IUGR.) - : 4 Parity: 0 Care: positive: [facility] Risk/History: positive: High risk Complications This : positive: Other (IUGR baby.) Smoking Status: Never smoker - Other Maternal History Other Maternal History: Allergies: Allergies Reviewed: Done * PORK (Critical) Medications: Meds Reviewed: Done * ELECTRIC BREAST PUMP Use 1 device as directed as directed USE TO EXPRESS MILK ACCORDING TO BABY'S NEEDS Z39.1 TYESHA 08/11/2023 Zoloft 25 mg tablet (sertraline) Take 1 tablet by mouth once a day * Folic acid * Vitamin * Lovenox Problems: Intrauterine growth restriction, third trimester (ICD-656.53) (KAC23-Y49.5930) screening for streptococcus B (ICD-V28.6) (RBE67-K09.85) Uterine size-date discrepancy, third trimester (ICD-649.60) (FCN96-S14.843) Home Lovenox therapy (ICD-V58.69) (DWQ98-F84.02) Supervision of other high risk , third trimester (ICD-V23.89) (ICD10- O09.893) 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) (VYK97-T93.59) Marijuana use (ICD-305.20) (UZH47-A22.10) History of blood clots (ICD-V12.51) (JJD18-Q96.718) Past Medical History: Blood clot in her brain Depression/anxiety Covid x 3 Past Surgical History: Knee surgery Vital Signs: Patient Profile: 28 Years Old Female Height: 65 inches Weight: 179 pounds BMI: 29.89 BP sittin / 64 Cuff size: regular Vitals Entered By: Beatriz SUAREZ (July 23, 2023 12:54 PM) Flowsheet View for Follow-up Visit Estimated weeks of gestation: 37 2/7 Weight: 179 Blood pressure: 138 / 64 Fundal height: 31 FHR: 125 Vaginal bleeding: no Vaginal discharge: no activity: yes Labor symptoms: no Taking vits? Y Smoking: n/a Next visit: 1 wk Comment: IOL scheduled for IUGR. Plan for 38-weeks. Some ccontractions, every 1-2 hours. Maybe lost mucous plug. No regular contractions. Decliens cervical exam today. LMP: 10/26/22 TYESHA by LMP: 08/02/23 US on 12/18/22 at 6.2 wks NOT c/w LMP dating, affirmed at [facility] Final TYESHA: 08/11/2023 IUGR Discussed abdominal circumference of 3rd percentile which will likely need a 37 to 39-week delivery, possibly on the earlier side given 3rd percentile. Discussed technically above 3rd%, so 38-39, so planning on 38 week induction. 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 lovenox-Continue 6 weeks [ ] redraw protein S post- (6w out) H/O MAB x3 between 6-8 weeks f/u MFM recs on blood thinners / testing. Anxiety: Using marijuana for aid. Continues to taper. Started sertraline and doing well on 25mg. Declines increase Encouraged to set up counseling Aware of crisis line. VAPE - on 0% and working on quitting. Marijuana use NEVER HAD PAP [ ] post . Nuchal cord R INGUINAL HERNIA PPW:143.4 BMI: 23.95 O+ Ab: neg CBC: PLT-272 HCT-41.5 HGB-13.5 RUB: imm VZV: imm HBsAg: neg HepC: neg RPR/AB-EIA: NR HIV: neg PAP: has never had one- DO GC/CT: negative HSV: denies self and partner Genetic testing: cfDNA wnl x3 - Covid:declined no hx of illness Flu: declines 07/02 FAS: 03/20/2023 @19+3 Placenta: Anterior/left Cord: 3 Vessel w/marginal insertion, nuchal CORD can be seen APRIL: 13.1cm EFW: 286g; 39th%tile FU US 06/02 -cord insertion appears normal -EFW 18%ile 50gm OGCT: 89 TDAP: Declined Breast Pump: rcvd 05/21 3rd trimester H/H 10.9/33.6 PLT 228 GBS: Negative Delivery plan:39-week induction tentative 3/11 Contraception:Possible ParaGard. Nonhormonal method desired. P: 0 A: 3 SAB: 3 LMP: 10/26/2022 EDC: 08/11/2023 Height: 65 (07/16/2023 12:51:37 PM) Weight: 179 Weight (pre-): 143.4 (12/11/2022 8:38:55 AM) Chlamydia: NEGATIVE (04/22/2023 12:30:00 PM) Group B: NEGATIVE (07/17/2023 1:00:00 PM) Blood Type: O POS^O POSITIVE^L (12/12/2022 10:54:00 AM) Last Antibody Screen: NEGATIVE (12/12/2022 10:54:00 AM) Is pt sexually active? yes Chlamydia: NEGATIVE (04/22/2023 12:30:00 PM) RPR: Non Reactive (12/12/2022 10:54:00 AM) last uls report reviewed: FINDINGS: General: A single living intrauterine gestation is present. Presentation: Vertex Placenta: Placental position is anterior left, without previa. Amniotic fluid index: 13.1 cm, within normal limits for gestational age. heart rate: 138 beats per minute. Maternal cervical canal: 3.5 cm long; normal length is 2.5 cm or more. biometrics: Biparietal diameter: 8.4 cm, 33 weeks 6 days, 7.8 percentile Head circumference: 31.7 cm, 35 weeks 5 days, 14.2 percentile Abdominal circumference: 29.29 cm, 33 weeks 2 days, 3.4 percentile Femur length: 6.54 cm, 33 weeks 5 days, 4.2 percentile Estimated gestational age from initial scan! 36 weeks 0 days Composite gestational age from present scan: 34 weeks 1 day Estimated weight and percentile: 2256 g, 6th percentile Measurement variability in biometric dating: +/- 10 days from 12-20 weeks gestation, +/- 2 weeks from 20-30 weeks gestation, +/- 3 weeks at 30 weeks gestation or more. Other: Normal umbilical artery waveform. SD ratio ranges 2.4 through 5.1. IMPRESSION: live IUP at 36 w 0d. EFW 2256 g, 6th %ile normal umbilical artery waveform, SD ranges 2.5 to 5.1 Jf Louis MD 07/14/2023 3 :18PM (GMT-08:00) We did discuss with patient, however her growth is in the 6th percentile overall and 3rd percentile for abdominal circumference. IUGR. NST/BPP's with Doppler scheduled for patient. - HPI Diagnosis/Indication for NST: Intrauterine growth restriction Current EDU 08/11/23 Gestation 38 Weeks and 0 Days 4 Vital Signs Temperature 98.2 F 07/28/23 11:33 Heart Rate 69 07/28/23 11:33 Respiratory Rate 18 07/28/23 11:33 Blood Pressure 140/83 H 07/28/23 11:33 Temperature 98.2 F 07/28/23 11:33 Heart Rate 69 07/28/23 11:33 Respiratory Rate 18 07/28/23 11:33 Blood Pressure 140/83 H 07/28/23 11:33 O2 Saturation If not protocol: Oxygen Flow, liters/minute - NST Procedure NST Procedure Start Time 10:30 Stop Time 11:30 - Results and Plan Findings/Impression: NST reviewed before starting induction. baseline 140. moderate variablity. + acels. no decels. reactive nst. proceed with induction. Meds/Allgy - Home Medications Home Medications: Ambulatory Orders Medication Instructions Recorded Confirmed Enoxaparin [Lovenox] 40 meq SUBQ DAILY 06/12/23 07/28/23 Iron Fum,Ps/Folic/Bcomp,C No.9 1 cap PO DAILY 06/12/23 07/28/23 [Iron Folate Plus Capsule] Sertraline [Zoloft] 25 mg PO DAILY 06/12/23 07/28/23 - Allergies Allergies/Adverse Reactions: Allergies Allergy/AdvReac Type Severity Reaction Status Date / Time Pork/Porcine Containing Allergy Headache Verified 06/12/23 17:47 Products heparin AdvReac Nausea Verified 06/12/23 17:47 Review of Systems - Constitutional Constitutional: reports: Fatigue - Respiratory Respiratory: denies: Cough - Other Findings Other Findings: having contractions and feeling them some. not too bad. no headache. good movement. Physical - Abdominal Exam Vital Signs: Temp Pulse Resp BP Pulse Ox O2 Flow Rate 98.2 F 69 18 140/83 H 07/28/23 11:33 07/28/23 11:33 07/28/23 11:33 07/28/23 11:33 Contraction Frequency (min/apart): q3-5 Contraction Intensity: positive: Mild, Mild to moderate - Monitoring Heart Rate Baseline: 140 Strip Review: positive: Category I - Presentation Presentation: positive: Vertex - Vaginal Exam Membranes: positive: Membranes intact Dilation (in cm): unable to reach Station: positive: -3 Cervical Position: positive: Posterior - Speculum Exam Speculum Exam Performed: positive: No Plan for Labor - Plan For Labor I expect patient to be DC'd or transferred within 96 hours.: Yes Plan for Labor: induction of labor for IUGR fetus. start with misoprostol. NST reactive before starting. unable reach cervix. induction process, risks discussed. consents signed.
--- NOTE | 2023-07-28 23:11 | PROVIDER PROGRESS NOTE ---
Labor Progress Note - Uterine Monitoring Uterine Monitoring Mode: positive: External toco Contraction Frequency (min/apart): q2-4 Contraction Intensity: positive: Moderate Uterine Resting Tone: positive: Soft - Monitoring Monitor Mode: positive: External ultrasound Heart Rate Baseline: 145 Heart Rate Variability: positive: Moderate (6-25 bmp) Accelerations: positive: Present, 15x15 Decelerations: positive: None Strip Review: positive: Category I - Vaginal Exam Dilation (in cm): unable to reach still, too posterior Station: -3 (baby's head definitely coming into pelvic more than before.) Cervical Position: Posterior - Labor Progress Note Labor Progress Note/Additional Text: using nitrous for pain. very active in the room. ready for some fentanyl. not ready for epidural yet. would like warm pack for comfort. with her and supportive. could consider therapeutic rest with some morphine if she wants.
[2023-07-28] MEDS: MORPHINE 10 MG/ML VIAL IM STA (23:53)
[2023-07-28] MEDS: MORPHINE 2 MG/ML CARPUJECT IVP ONE (23:53)
[2023-07-28] MEDS: SODIUM CHLORIDE FLUSH 0.9% 10 ML SYRINGE IVP SCH (23:55)
[2023-07-29] MEDS: LACTATED RINGERS 1,000 ML IV PRN (05:20)
[2023-07-29] MEDS: ONDANSETRON 4 MG/2 ML VIAL IVP PRN (05:27)
[2023-07-29] MEDS: fentaNYL 100 MCG/2 ML VIAL IVP PRN (08:50)
[2023-07-29] MEDS ORDERED: ROPIVACAINE 0.2% 200 MG/100 ML BAG EP ONE (10:32)
[2023-07-29] MEDS ORDERED: LIDOCAINE 2%-EPI 1:100000 20 ML MDV ONE (10:32)
--- NOTE | 2023-07-29 11:42 | ANESTHESIA ---
Pre-Anesthesia VS, & Labs - Diagnosis LABOR, - Procedure LABOR EPIDURAL Vital Signs: Temp Pulse Resp BP Pulse Ox O2 Flow Rate 36.8 C 69 18 140/83 H 07/28/23 11:33 07/28/23 11:33 07/28/23 11:33 07/28/23 11:33 Height: 5 ft 5 in Weight (kg): 81.284 kg Body Mass Index: 29.8 BMI Classification: Overweight - NPO Last Food Intake: 829 - Is Patient ?: Yes - Lab Results Current Lab Results: Laboratory Tests 07/28/23 14:30: WBC 8.0, RBC 3.71 L, Hgb 10.9 L, Hct 33.3 L, MCV 89.8, MCH 29.4, MCHC 32.7, RDW 15.1 H, Plt Count 170, MPV 12.7 H, Neut # (Auto) 5.7, Lymph # (Auto) 1.9, [place] # (Auto) 0.4, Eos # (Auto) 0.0, Baso # (Auto) 0.0, Absolute Nucleated RBC 0.00, Nucleated RBC % 0.0 07/28/23 14:30: Blood Type O POSITIVE, Antibody Screen NEGATIVE, Crossmatch IS Only See Detail 07/28/23 14:30: Sodium 134 L, Potassium 3.7, Chloride 101, Carbon Dioxide 25, Anion Gap 8.0, BUN 9, Creatinine 0.8, Estimated GFR (MDRD) 87 L, Glucose 76, Calcium 8.9, Total Bilirubin 0.3, AST 39, ALT 37, Alkaline Phosphatase 135 H, Total Protein 6.7, Albumin 3.6, Globulin 3.1, Albumin/Globulin Ratio 1.2 Fish Bones: 07/28/23 14:30 07/28/23 14:30 Home Medications and Allergies Active Medications Carboprost Tromethamine (Carboprost Tromethamine 250 Mcg/Ml Vial) 250 mcg IM .ONCE PRN PRN Reason: Hemorrhage Fentanyl (Fentanyl 100 Mcg/2 Ml Vial) 50 mcg IVP Q1H PRN PRN Reason: Severe Pain (score 7-10) Last Admin: 07/29/23 08:50 Dose: 50 mcg Hydralazine HCl (Hydralazine Inj 20 Mg/Ml Vial) 5 - 10 mg IVP Q20M PRN; Protocol PRN Reason: SBP> or= 160 OR DBP> or= 110 Hydralazine HCl (Hydralazine Inj 20 Mg/Ml Vial) 10 mg IVP .ONCE PRN; Protocol PRN Reason: SBP> or= 160 OR DBP> or= 110 Lactated Ringer's (Lr) 500 mls @ 999 mls/hr IV PRN PRN PRN Reason: Abdominal Pain Last Infusion: 07/29/23 06:05 Dose: 0 mls/hr Oxytocin/Sodium Chloride (Pitocin/Sodium Chloride) 500 mls @ 999 mls/hr IV PRN PRN; Protocol PRN Reason: POST- HEMORR PREVENTION Tranexamic Acid (Tranexamic 1,000 Mg/100ml-Nacl) 1,000 mg in 100 mls @ 600 mls/hr IV Q30M PRN PRN Reason: EBL >1200mL and within 3hr Labetalol HCl (Labetalol 20 Mg/4 Ml Syringe) 20 - 80 mg IVP Q10M PRN; Protocol PRN Reason: SBP> or= 160 OR DBP> or= 110 Labetalol HCl (Labetalol 20 Mg/4 Ml Syringe) 20 mg IVP .ONCE PRN; Protocol PRN Reason: SBP> or= 160 OR DBP> or= 110 Labetalol HCl (Labetalol 20 Mg/4 Ml Syringe) 20 - 40 mg IVP Q10M PRN; Protocol PRN Reason: SBP> or= 160 OR DBP> or= 110 Lidocaine HCl (Lidocaine 1% 20 Ml Mdv) 20 ml ID .ONCE PRN PRN Reason: PERINEAL REPAIR Stop: 07/31/23 12:24 Methylergonovine Maleate (Methylergonovine 0.2 Mg/Ml Vial) 0.2 mg IM .ONCE PRN PRN Reason: Hemorrhage Misoprostol (Misoprostol 200 Mcg Tablet) 600 mcg BC .ONCE PRN PRN Reason: Hemorrhage Misoprostol (Misoprostol 200 Mcg Tablet) 800 mcg [place] .ONCE PRN PRN Reason: Hemorrhage Nifedipine (Nifedipine 10 Mg Capsule) 10 - 20 mg PO Q20M PRN; Protocol PRN Reason: SBP> or= 160 OR DBP> or= 110 Ondansetron HCl (Ondansetron 4 Mg/2 Ml Vial) 4 mg IVP Q4HR PRN PRN Reason: Nausea / Vomiting Last Admin: 07/29/23 05:27 Dose: 4 mg Oxytocin (Oxytocin 10 Unit/Ml Vial) 10 unit IM .ONCE PRN PRN Reason: Step One if no IV access. Sertraline HCl (Sertraline 25 Mg Tablet) 25 mg PO DAILY [facility] Sodium Chloride (Sodium Chloride Flush 0.9% 10 Ml Syringe) 10 ml IVP PRN PRN PRN Reason: NEEDED PER PROVIDER ORDERS Sodium Chloride (Sodium Chloride Flush 0.9% 10 Ml Syringe) 10 ml IVP Q8H [facility] Last Admin: 07/28/23 23:55 Dose: 10 ml Terbutaline Sulfate (Terbutaline 1 Mg/Ml Vial) 0.25 mg SUBQ .ONCE PRN PRN Reason: Tachystole Enoxaparin [Lovenox] 40 meq SUBQ DAILY 06/12/23 Iron Fum,Ps/Folic/Bcomp,C No.9 [Iron Folate Plus Capsule] 1 cap PO DAILY 06/12/23 Sertraline [Zoloft] 25 mg PO DAILY 06/12/23 Allergies/Adverse Reactions: Allergies Allergy/AdvReac Type Severity Reaction Status Date / Time Pork/Porcine Containing Allergy Headache Verified 06/12/23 17:47 Products heparin AdvReac Nausea Verified 06/12/23 17:47 Anes History & Medical History - Anesthetic History Anesthesia Complications: reports: No previous complications Family history of Anesthesia Complications: Denies - Medical History Cardiovascular: reports: None Pulmonary: reports: None Gastrointestinal: reports: None Urinary: reports: None Neuro: reports: Migraines, Other Skin: reports: Other (HX ANTITHROMBIN 3 DEFICIENCY; ;AST LOVENOX 06/28 23:30) Smoking Status: Never smoker Psychosocial: reports: No issues indicated - Obstetrical History : 4 Parity: 0 Events: reports: High risk Complications: reports: Other (IUGR baby.) Exam General: Alert Mouth Openin Fingerbreadth Neck Mobility: Normal Mallampati classification: II Plan Anesthesia Type: Epidural Consent for Procedure(s) Verified and Reviewed: Yes Code Status: Attempt Resuscitation ASA classification: 2-Mild systemic disease Is this case an emergency?: No
[2023-07-29] MEDS ORDERED: NALBUPHINE 10 MG/ML AMP IVP PRN (11:49)
[2023-07-29] MEDS ORDERED: ROPIVACAINE 0.2% 200 MG/100 ML BAG EP PRN (11:49)
[2023-07-29] MEDS ORDERED: ONDANSETRON 4 MG/2 ML VIAL IVP PRN (11:49)
[2023-07-29] MEDS ORDERED: diphenhydrAMINE INJ 50 MG/ML VIAL IVP PRN (11:49)
--- NOTE | 2023-07-29 11:49 | ANESTHESIA ---
Pre-Anesthesia VS, & Labs - Diagnosis , LABOR - Procedure LABOR EPIDURAL Vital Signs: Temp Pulse Resp BP Pulse Ox O2 Flow Rate 36.8 C 69 18 140/83 H 07/28/23 11:33 07/28/23 11:33 07/28/23 11:33 07/28/23 11:33 Height: 5 ft 5 in Weight (kg): 81.284 kg Body Mass Index: 29.8 BMI Classification: Overweight - NPO Last Food Intake: 829 - Is Patient ?: Yes - Lab Results Current Lab Results: Laboratory Tests 07/28/23 14:30: WBC 8.0, RBC 3.71 L, Hgb 10.9 L, Hct 33.3 L, MCV 89.8, MCH 29.4, MCHC 32.7, RDW 15.1 H, Plt Count 170, MPV 12.7 H, Neut # (Auto) 5.7, Lymph # (Auto) 1.9, [place] # (Auto) 0.4, Eos # (Auto) 0.0, Baso # (Auto) 0.0, Absolute Nucleated RBC 0.00, Nucleated RBC % 0.0 07/28/23 14:30: Blood Type O POSITIVE, Antibody Screen NEGATIVE, Crossmatch IS Only See Detail 07/28/23 14:30: Sodium 134 L, Potassium 3.7, Chloride 101, Carbon Dioxide 25, Anion Gap 8.0, BUN 9, Creatinine 0.8, Estimated GFR (MDRD) 87 L, Glucose 76, Calcium 8.9, Total Bilirubin 0.3, AST 39, ALT 37, Alkaline Phosphatase 135 H, Total Protein 6.7, Albumin 3.6, Globulin 3.1, Albumin/Globulin Ratio 1.2 Fish Bones: 07/28/23 14:30 07/28/23 14:30 Home Medications and Allergies Active Medications Carboprost Tromethamine (Carboprost Tromethamine 250 Mcg/Ml Vial) 250 mcg IM .ONCE PRN PRN Reason: Hemorrhage Fentanyl (Fentanyl 100 Mcg/2 Ml Vial) 50 mcg IVP Q1H PRN PRN Reason: Severe Pain (score 7-10) Last Admin: 07/29/23 08:50 Dose: 50 mcg Hydralazine HCl (Hydralazine Inj 20 Mg/Ml Vial) 5 - 10 mg IVP Q20M PRN; Protocol PRN Reason: SBP> or= 160 OR DBP> or= 110 Hydralazine HCl (Hydralazine Inj 20 Mg/Ml Vial) 10 mg IVP .ONCE PRN; Protocol PRN Reason: SBP> or= 160 OR DBP> or= 110 Lactated Ringer's (Lr) 500 mls @ 999 mls/hr IV PRN PRN PRN Reason: Abdominal Pain Last Infusion: 07/29/23 06:05 Dose: 0 mls/hr Oxytocin/Sodium Chloride (Pitocin/Sodium Chloride) 500 mls @ 999 mls/hr IV PRN PRN; Protocol PRN Reason: POST- HEMORR PREVENTION Tranexamic Acid (Tranexamic 1,000 Mg/100ml-Nacl) 1,000 mg in 100 mls @ 600 mls/hr IV Q30M PRN PRN Reason: EBL >1200mL and within 3hr Labetalol HCl (Labetalol 20 Mg/4 Ml Syringe) 20 - 80 mg IVP Q10M PRN; Protocol PRN Reason: SBP> or= 160 OR DBP> or= 110 Labetalol HCl (Labetalol 20 Mg/4 Ml Syringe) 20 mg IVP .ONCE PRN; Protocol PRN Reason: SBP> or= 160 OR DBP> or= 110 Labetalol HCl (Labetalol 20 Mg/4 Ml Syringe) 20 - 40 mg IVP Q10M PRN; Protocol PRN Reason: SBP> or= 160 OR DBP> or= 110 Lidocaine HCl (Lidocaine 1% 20 Ml Mdv) 20 ml ID .ONCE PRN PRN Reason: PERINEAL REPAIR Stop: 07/31/23 12:24 Methylergonovine Maleate (Methylergonovine 0.2 Mg/Ml Vial) 0.2 mg IM .ONCE PRN PRN Reason: Hemorrhage Misoprostol (Misoprostol 200 Mcg Tablet) 600 mcg [place] .ONCE PRN PRN Reason: Hemorrhage Misoprostol (Misoprostol 200 Mcg Tablet) 800 mcg [place] .ONCE PRN PRN Reason: Hemorrhage Nifedipine (Nifedipine 10 Mg Capsule) 10 - 20 mg PO Q20M PRN; Protocol PRN Reason: SBP> or= 160 OR DBP> or= 110 Ondansetron HCl (Ondansetron 4 Mg/2 Ml Vial) 4 mg IVP Q4HR PRN PRN Reason: Nausea / Vomiting Last Admin: 07/29/23 05:27 Dose: 4 mg Oxytocin (Oxytocin 10 Unit/Ml Vial) 10 unit IM .ONCE PRN PRN Reason: Step One if no IV access. Sertraline HCl (Sertraline 25 Mg Tablet) 25 mg PO DAILY [facility] Sodium Chloride (Sodium Chloride Flush 0.9% 10 Ml Syringe) 10 ml IVP PRN PRN PRN Reason: NEEDED PER PROVIDER ORDERS Sodium Chloride (Sodium Chloride Flush 0.9% 10 Ml Syringe) 10 ml IVP Q8H [facility] Last Admin: 07/28/23 23:55 Dose: 10 ml Terbutaline Sulfate (Terbutaline 1 Mg/Ml Vial) 0.25 mg SUBQ .ONCE PRN PRN Reason: Tachystole Enoxaparin [Lovenox] 40 meq SUBQ DAILY 06/12/23 Iron Fum,Ps/Folic/Bcomp,C No.9 [Iron Folate Plus Capsule] 1 cap PO DAILY 06/12/23 Sertraline [Zoloft] 25 mg PO DAILY 06/12/23 Allergies/Adverse Reactions: Allergies Allergy/AdvReac Type Severity Reaction Status Date / Time Pork/Porcine Containing Allergy Headache Verified 06/12/23 17:47 Products heparin AdvReac Nausea Verified 06/12/23 17:47 Anes History & Medical History - Anesthetic History Anesthesia Complications: reports: No previous complications - Medical History Cardiovascular: reports: None Pulmonary: reports: None Gastrointestinal: reports: None Urinary: reports: None Neuro: reports: Migraines, Other Skin: reports: Other (HX ANTITHROMBIN 3 DEFICIENCY; ;AST LOVENOX 06/28 23:30) Smoking Status: Never smoker Psychosocial: reports: No issues indicated - Obstetrical History : 4 Parity: 0 Events: reports: High risk Complications: reports: Other (IUGR baby.) Plan Anesthesia Type: Epidural Consent for Procedure(s) Verified and Reviewed: Yes Code Status: Attempt Resuscitation ASA classification: 2-Mild systemic disease Is this case an emergency?: No
--- NOTE | 2023-07-29 13:20 | HISTORY & PHYSICAL EXAMINATION ---
Admit History - Smoking Status: Never smoker - [facility] Current EDU 08/11/23 Gestation 38 Weeks and 0 Days 4 Vital Signs Temperature 98.2 F 07/28/23 11:33 Heart Rate 69 07/28/23 11:33 Respiratory Rate 18 07/28/23 11:33 Blood Pressure 140/83 H 07/28/23 11:33 Temperature 98.2 F 07/28/23 11:33 Heart Rate 69 07/28/23 11:33 Respiratory Rate 18 07/28/23 11:33 Blood Pressure 140/83 H 07/28/23 11:33 O2 Saturation If not protocol: Oxygen Flow, liters/minute - NST Procedure NST Procedure Start Time 10:30 Stop Time 11:30 Meds/Allgy - Home Medications Home Medications: Ambulatory Orders Medication Instructions Recorded Confirmed Enoxaparin [Lovenox] 40 meq SUBQ DAILY 06/12/23 07/28/23 Iron Fum,Ps/Folic/Bcomp,C No.9 1 cap PO DAILY 06/12/23 07/28/23 [Iron Folate Plus Capsule] Sertraline [Zoloft] 25 mg PO DAILY 06/12/23 07/28/23 - Allergies Allergies/Adverse Reactions: Allergies Allergy/AdvReac Type Severity Reaction Status Date / Time Pork/Porcine Containing Allergy Headache Verified 06/12/23 17:47 Products heparin AdvReac Nausea Verified 06/12/23 17:47 Physical - Abdominal Exam Vital Signs: Temp Pulse Resp BP Pulse Ox O2 Flow Rate 98.2 F 69 18 140/83 H 07/28/23 11:33 07/28/23 11:33 07/28/23 11:33 07/28/23 11:33
--- NOTE | 2023-07-29 13:38 | PROVIDER PROGRESS NOTE ---
Objective - Vital Signs/Intake & Output Intake & Output: Intake & Output 07/26/23 07/27/23 07/28/23 07/29/23 22:59 23:59 23:59 23:59 Intake Total 500 1050 Output Total 250 Balance 500 800 - Lab Results Fish Bones: 07/28/23 14:30 07/28/23 14:30 Other Labs: Lab Results x24hrs 07/28/23 07/28/23 07/28/23 Range/Units 14:30 14:30 14:30 WBC 8.0 (4.8-10.8) x10^3/uL RBC 3.71 L (4.20-5.40) 10^6/uL Hgb 10.9 L (12.0-16.0) g/dL Hct 33.3 L (37.0-47.0) % MCV 89.8 (81.0-99.0) fL MCH 29.4 (27.0-31.0) pg MCHC 32.7 (32.0-36.0) g/dL RDW 15.1 H (12.0-15.0) % Plt Count 170 (130-450) 10^3/uL MPV 12.7 H (7.9-10.8) fL Neut # (Auto) 5.7 (1.5-6.6) 10^3/uL Lymph # (Auto) 1.9 (1.5-3.5) 10^3/uL [place] # (Auto) 0.4 (0.0-1.0) 10^3/uL Eos # (Auto) 0.0 (0.0-0.7) 10^3/uL Baso # (Auto) 0.0 (0.0-0.1) 10^3/uL Absolute Nucleated RBC 0.00 x10^3/uL Nucleated RBC % 0.0 /100WBC Sodium 134 L (135-145) mmol/L Potassium 3.7 (3.5-4.5) mmol/L Chloride 101 (101-111) mmol/L Carbon Dioxide 25 (21-32) mmol/L Anion Gap 8.0 (6-13) BUN 9 (6-20) mg/dL Creatinine 0.8 (0.6-1.3) mg/dL Estimated GFR (MDRD) 87 L (>89) Glucose 76 (74-104) mg/dL Calcium 8.9 (8.5-10.3) mg/dL Total Bilirubin 0.3 (0.2-1.0) mg/dL AST 39 (10-42) IU/L ALT 37 (10-60) IU/L Alkaline Phosphatase 135 H (42-121) IU/L Total Protein 6.7 (6.4-8.9) g/dL Albumin 3.6 (3.2-5.5) g/dL Globulin 3.1 (2.1-4.2) g/dL Albumin/Globulin Ratio 1.2 (1.0-2.2) Blood Type O POSITIVE Antibody Screen NEGATIVE Crossmatch IS Only See Detail
[2023-07-29] MEDS: OXYTOCIN/SODIUM CHLORIDE 500 ML IV SCH (14:34)
--- NOTE | 2023-07-29 17:50 | PROVIDER PROGRESS NOTE ---
Labor Progress Note - Uterine Monitoring Uterine Monitoring Mode: positive: External toco Contraction Frequency (min/apart): q 4-5 Contraction Intensity: positive: Moderate Uterine Resting Tone: positive: Soft - Monitoring Monitor Mode: positive: Spiral electrode Heart Rate Baseline: 120 Heart Rate Variability: positive: Moderate (6-25 bmp) Accelerations: positive: Present, 15x15 Decelerations: positive: Intermittent (<50% x20 min) Strip Review: positive: Category I - Vaginal Exam Dilation (in cm): 9 Station: 1 - Labor Progress Note Labor Progress Note/Additional Text: very uncomfortable with pressure. resting alot today but still very tired. FSE placed as we were struggling to find baby. sometimes baseline shifting very low. Pitocin off now. was max to 4. anticipate that we will be able to start pushing soon.
[2023-07-29] MEDS ORDERED: HYDROCORTISONE 1% CREAM 28 GM TUBE PR PRN (19:14)
--- NOTE | 2023-07-29 19:28 | DELIVERY NOTE ---
Delivery Note - Labor Labor: positive: Induced by oxytocin - Infant Delivery Method Delivery Method: positive: Spontaneous vaginal delivery - Cervical Ripening Method Cervical Ripening Method: positive: Misoprostil - Presentation Presentation: positive: Vertex, OA - occiput anterior - Nuchal Cord Nuchal Cord: positive: None - Anesthetic Anesthetic Type: - Amniotic Fluid Description Amniotic Fluid Description: positive: Clear - Episiotomy Type Episiotomy Type: positive: None - Laceration Laceration: positive: Labial (right labial skin laceration, pretty superficial. does not need repair as not bleeding. from just below clitoris down to introitus.) - [place]: positive: Placed in direct skin contact with mother, Stimulated, [place] used [place] sex: positive: Female - Cord Cord: positive: 3 vessels - Placenta Placenta: positive: Intact - Estimated Blood Loss Estimated Blood Loss (in cc): 50 - Post Delivery Events Post Delivery Events: positive: No post delivery events - Delivery Comments (Free Text/Narrative) Delivery Comments (Free Text/Narrative): labor induced at 37 weeks due to IUGR noted on baby's ultrasound. Went into labor with misoprostol. very uncomfortable. received morphine IM overnight. then epidural in am. SROM for clear fluid. oxytocin augmentation, most at 4. baby did well thru labor. few decels, nothing consistent. once she was ready to push, some bradycardia into 80s. patient pushed hard and well and I provided perineal pressure and stretching and she was able t o deliver her daughter with about 10 minutes of pushing just after 6 pm. Apgars 8/8. NO nuchal cord, but it was relative short. Baby placed on mom and dried with blanket. cord clamped and cut by dad after a few minutes. pitocin in IV. placenta delivered with gentle traction. intact. labial laceration on right at vaginal opening from just below clitoris down to introitus. not bleeding or deep so not repaired. closes on its own when her legs are closed. told Liz it would sting when she voided. placenta was a small heart shaped disc, very meaty. appeared normal. no calcifications.
[2023-07-29] MEDS: ACETAMINOPHEN 325 MG TABLET PO PRN (19:34)
[2023-07-29] MEDS: IBUPROFEN 600 MG TABLET PO SCH (19:34)
[2023-07-29] MEDS ORDERED: LACTATED RINGERS 1,000 ML IV SCH (20:00)
[2023-07-30] MEDS: DOCUSATE SODIUM 100 MG CAPSULE PO SCH (00:49)
[2023-07-30] MEDS: WITCH HAZEL/GLYCERIN 1 PAD TOP PRN (00:50)
[2023-07-30] MEDS: SERTRALINE 25 MG TABLET PO SCH (01:01)
[2023-07-30] MEDS: oxyCODONE 5 MG TABLET PO PRN (02:30)
[2023-07-30] MEDS: ONDANSETRON ODT 4 MG TABLET TL PRN (07:33)
[2023-07-30] MEDS: ENOXAPARIN 40 MG/0.4 ML SYRINGE SUBQ SCH (08:56)
--- NOTE | 2023-07-30 21:27 | PROVIDER PROGRESS NOTE ---
Subjective - Subjective Pt reports feeling: Improved Subjective: feeling better. tired. working on feeding. Objective - Vital Signs/Intake & Output Reviewed Vital Signs: Yes Vital Signs: Vital Signs x48h Temp Pulse Resp BP BP Pulse Ox 07/30/23 18:00 98.2 F 66 16 130/74 96 07/30/23 16:21 98.2 F 56 L 18 139/85 H 97 07/30/23 13:49 98.2 F 55 L 18 136/68 H 95 Intake & Output: Intake & Output 07/27/23 07/28/23 07/29/23 07/30/23 23:59 23:59 23:59 23:59 Intake Total 500 1474.5 800 Output Total 1442 Balance 500 32.5 800 - Objective General Appearance: positive: No acute distress Respiratory: positive: No respiratory distress Cardiovascular: positive: Regular rate & rhythm Skin: positive: Color nml Extremities: positive: Non-tender - Lab Results Fish Bones: 07/28/23 14:30 07/28/23 14:30 Assessment/Plan - Problem List (1) Vaginal delivery Impression: doing well. baby small but doing well. breast feeding going well. peds wants to watch baby until tomorrow.
[2023-07-31 02:56] VITALS: O2SAT 99
--- NOTE | 2023-07-31 07:08 | DISCHARGE SUMMARY ---
"Discharge Summary Admit Date: 07/28/23 Discharge Date: 07/29/23 Discharging Provider: Celestina Gonzalez MD Code Status: Attempt Resuscitation Condition at Discharge: Good Discharge Disposition: 01 Home, Self Care - DIAGNOSES Admission Diagnoses: labor induction due to IUGR at term Discharge Diagnoses with Status of Each Condition: delivered vaginally without complications. baby is IUGR - HPI History of Present Illness: normal first other than baby is quite small. Here for induction - CONSULTS | PROCEDURES Procedures: labor induction. vaginal delivery - ALLERGIES Allergies/Adverse Reactions: Allergies Allergy/AdvReac Type Severity Reaction Status Date / Time Pork/Porcine Containing Allergy Headache Verified 06/12/23 17:47 Products heparin AdvReac Nausea Verified 06/12/23 17:47 - MEDICATIONS Home Medications: Ambulatory Orders Medication Instructions Recorded Confirmed Enoxaparin [Lovenox] 40 meq SUBQ DAILY 06/12/23 07/28/23 Iron Fum,Ps/Folic/Bcomp,C No.9 1 cap PO DAILY 06/12/23 07/28/23 [Iron Folate Plus Capsule] Sertraline [Zoloft] 25 mg PO DAILY 06/12/23 07/28/23 Acetaminophen [Tylenol] 650 mg PO Q4HR PRN #30 tab 07/31/23 Docusate Sodium 100Mg Capsule 100 mg PO BID PRN #60 cap 07/31/23 [Colace 100Mg Capsule] Ibuprofen [Motrin] 600 mg PO Q6H PRN #30 tab 07/31/23 - PHYSICAL EXAM AT DISCHARGE General Appearance: positive: No acute distress (except she is quite tired) Respiratory: positive: No respiratory distress Cardiovascular: positive: Regular rate & rhythm Skin: positive: Color nml Extremities: positive: Nml appearance Neurologic/Psychiatric: positive: Oriented x3 - LABS Result Diagrams: 07/28/23 14:30 07/28/23 14:30 - FOLLOW UP Follow Up: in clinic in 1-2 weeks. - TIME SPENT Time Spent in Discharge (Minutes): 15"
[2023-07-31 10:22] VITALS: BP 144/76
--- NOTE | 2023-07-31 13:41 | Labor Flowsheet ---
Labor Flowsheet Datetime Report Generated by CPN: 07/31/2023 13:41 Datetime: 07/31/2023 10:16 VITAL SIGNS NBP Sys/Marybel/Mean (mmHg): 144 : 76 : 93 Pulse: 63 Datetime: 07/30/2023 16:19 SpO2 (%): 97 Datetime: 07/29/2023 19:57 Membranes Ruptured Date/Time: 07/29/2023 07:00 Amniotic Fluid Odor: Normal Datetime: 07/29/2023 18:30 Stage of : Datetime: 07/29/2023 18:28 Communication Comments: pit bolus started Datetime: 07/29/2023 18:20 Patient Care Comments: rt lat Datetime: 07/29/2023 18:16 COMMUNICATION Communication: Provider at Bedside Datetime: 07/29/2023 18:15 LaborFlag: Labor Datetime: 07/29/2023 18:14 VAGINAL EXAM Dilatation (cm): 10.0 Effacement (%): 100 Station: 2 Datetime: 07/29/2023 18:13 STAGE 2 Pushing: Coached on Pushing; Urge to Push Pushing Position: Pushing with Contractions; Pushing Lithotomy Pushing Progress: Descent with Pushing; Perineal Bulging Datetime: 07/29/2023 18:00 UTERINE ACTIVITY Monitor Mode: External Frequency (min): 4 Quality: Strong Duration (sec): 80 Pattern: Normal: <= 5 Contractions in 10 Minutes Resting Tone (Palpate): Relaxed ASSESSMENT A Monitor Mode: Internal Scalp Electrode FHR Baseline Changes: No Baseline Change Variability: Moderate 6-25 bpm Accelerations: 15X15 Decelerations: Early Category: Category I Datetime: 07/29/2023 17:12 Monitor Interventions for FHR: FSE Applied Datetime: 07/29/2023 17:01 MEDICATIONS Pitocin (milliunits): Discontinued Datetime: 07/29/2023 17:00 Exam by: Dr. Gonzalez Datetime: 07/29/2023 16:45 FHR Baseline Rate : 120 Datetime: 07/29/2023 16:00 Monitor Interventions for UA: [place] Adjusted Actions for Decelerations: Side to Side Datetime: 07/29/2023 15:54 Patient Position/Activity: Left Tilt Datetime: 07/29/2023 15:11 Temperature (C): 36.7 Datetime: 07/29/2023 13:26 Contraction Comments: toco adjusted Datetime: 07/29/2023 12:41 Vaginal Bleeding: Normal Show Cervix, Consistency: Soft Cervix, Position: Posterior Datetime: 07/29/2023 12:30 Pitocin Checklist: At Least 1 Acceleration of 15 bpm x 15 Seconds in 30 Minutes or Adequate Variabi lity; No More than 1 Late Deceleration Occurred in Past 30 Minutes; No More than 2 Variable Decelerat ions > 60 Seconds in Duration and decreasing >60 bpm in 30 minutes; No More than 5 Uterine Contractio ns in 10 Minutes for any 20 Minute Interval; Uterus Palpates Soft between Contractions Datetime: 07/29/2023 12:00 Respirations: 16 Vital Sign Comments: Pt c/o "heaviness on my chest", HOB raised. [place] to monitor. VSS. Datetime: 07/29/2023 11:14 Epidural Procedure Other: Pump Started Datetime: 07/29/2023 11:05 Epidural Procedure: Test Dose Datetime: 07/29/2023 10:58 Anesthesia Comments: restart Datetime: 07/29/2023 10:34 PROCEDURE TIME OUT Procedure Verify: Correct Patient Identity; Correct Side and Site are Marked; Accurate Procedure Co nsent Form; Agreement on Procedure to be Done; Correct Patient Position; Relevant Images and Results are Properly Labeled and Displayed ANESTHESIA Anesthesia Plans: Epidural Epidural Positioning: Sitting Datetime: 07/29/2023 10:33 Provider Notified (Name): eind denton Datetime: 07/29/2023 09:33 I/O Interventions: Up to BR Datetime: 07/29/2023 08:05 Comments: new telemetry applied Datetime: 07/29/2023 07:37 Hygiene: Complete Bath Datetime: 07/29/2023 07:22 Membrane Status: Ruptured Membranes Rupture Method: Spontaneous Amniotic Fluid Color: Clear Amniotic Fluid Amount: Moderate Nitrazine: Positive Datetime: 07/29/2023 07:19 Membrane Comments: possible rupture to confirm with nitrazine Datetime: 07/29/2023 07:10 Notification Reason: Status; Labor Status; Uterine Activity; Pain; Lab/Diagnostic Study Datetime: 07/29/2023 06:30 PAIN Pain Scale: 7 Pain Presence: None/Denies Pain Type: Cramping; Sharp; Contraction; Pressure Pain Location: Abdomen; Back Pain Goal: 4 Pain Relief Measures: Comfort Measures Pain Coping: Breathing Through Contractions Datetime: 07/29/2023 05:28 Antiemetics/Antacids: Zofran (mg) @ 4 Datetime: 07/29/2023 05:26 PATIENT CARE IV/Blood Work: IV Bolus Started; IV Bag Number @ 1 Datetime: 07/29/2023 02:36 Temperature Route: Oral Datetime: 07/29/2023 00:30 Oxygen Method: Room Air Datetime: 07/29/2023 00:00 Analgesics/Sedatives: Morphine Sulfate (mg) @ 2mg SIVP; 8mg IM Datetime: 07/28/2023 23:50 Medication Comments: Nitrous d/c'd. Will medicate w/Morphine for sleep/rest and pain mgmt Datetime: 07/28/2023 22:45 Presentation 'A': Cephalic Vaginal Exam Comments: VE by Dr Gonzalez. Unable to reach cervix; still high and posterior but cephalu s feels lower per OB provider Datetime: 07/28/2023 21:46 Pain Assessment Comments: Using nitrous Comfort Measures: Breathing/Relaxation; Coaching; Back Rub Given; Family Support Datetime: 07/28/2023 20:13 MATERNAL ASSESSMENT Level of Consciousness: Alert DTR's/Clonus: DTRs 2+ Headache: Denies Breath Sounds, Left: Clear and Equal Breath Sounds, Right: Clear and Equal Nausea/Vomiting: Denies RUQ Epigastric Pain: Denies Datetime: 07/28/2023 20:00 TEACHING Instructional Method: Verbal; Patient Instructed; Family/Support Person Instructed; Verbalized Unde rstanding Plan of Care: Plan of Care Discussed; Vaginal Delivery; Induction Unit Routine: Bed; Visiting Policy; Unit Personnel; Handwashing; Monitoring; Safety/Fall Risk Prevention; Diet/Nutrition Services; Bathroom Privileges; Medications Labor/Induction: Induction; Activity Pain Management: PRN Medications; Pain Scale/Goals; Comfort Measures Medications: Cervical Ripening Related: Maternal Physical Changes; Activity and Rest Datetime: 07/28/2023 17:06 Cervical Ripening Agents: Cytotec @
== END 2023-07-31 13:15 | disposition home or self-care (01) | DRG 806 ==
LOC: WFO 11:15 → FBP 11:17 → WFO 12:23 → FBP 12:24
PROVIDERS: ADMIT Obstetrics & Gynecology; ATTEND Obstetrics & Gynecology
PROC: 3E0P7VZ Introduction of Hormone into Female Reproductive, Via Natural or Artificial Opening (ICD-10-PCS; 2023-07-28)
PROC: 10E0XZZ Delivery of Products of Conception, External Approach (ICD-10-PCS; principal; 2023-07-29)
PROC: 10H073Z Insertion of Monitoring Electrode into Products of Conception, Via Natural or Artificial Opening (ICD-10-PCS; 2023-07-29)
DX: O36.5930 Maternal care for other known or suspected poor fetal growth, third trimester, not applicable or unspecified (principal); D68.59 Other primary thrombophilia; Z37.0 Single live birth; O99.324 Drug use complicating childbirth; O99.12 Other diseases of the blood and blood-forming organs and certain disorders involving the immune mechanism complicating childbirth; O76 Abnormality in fetal heart rate and rhythm complicating labor and delivery; O70.0 First degree perineal laceration during delivery; Z3A.37 37 weeks gestation of pregnancy; F12.980 Cannabis use, unspecified with anxiety disorder; O99.62 Diseases of the digestive system complicating childbirth; K40.90 Unilateral inguinal hernia, without obstruction or gangrene, not specified as recurrent
CPT/HCPCS: 36415; 59409; 80053; 85025; 86850; 86900; 86901; 86920; A9270; J1650; J7120; Q0162